=== PATIENT | female | born 1960 | race Caucasian/White ===

== ENCOUNTER → 2021-06-11 13:57 | Outpatient (BNVA) | payer OTHER, MEDICAID, MEDICARE, SELFPAY | PROVIDERS: PCP Internal Medicine; Visit Provider Nurse Practitioner Family | DX: G43.109 Migraine with aura, not intractable, without status migrainosus (principal); R41.3 Other amnesia; M54.50 Low back pain, unspecified | CPT/HCPCS: 99212 ==

== ENCOUNTER → 2021-07-12 12:53 | Outpatient (BNVA) | payer OTHER, MEDICAID, MEDICARE, SELFPAY | PROVIDERS: PCP Internal Medicine; Visit Provider Psychiatry & Neurology Neurology | DX: G43.109 Migraine with aura, not intractable, without status migrainosus (principal); G25.2 Other specified forms of tremor | CPT/HCPCS: 64615; 99212; J0585 ==

== ENCOUNTER 2021-08-27 12:44 | Outpatient (REF) | payer OTHER, SELFPAY ==
--- NOTE | ~2021-08-27 | MR_ITS ---
EXAMINATION: MR BRAIN WITHOUT CONTRAST. CLINICAL INFORMATION: 60-year-old with tremor, amnesia. COMPARISON: None TECHNIQUE: Multiplanar multisequence MR imaging of the brain was done without IV contrast. 1.5 Eboni scanner. FINDINGS: Brain Volume: Mild generalized diffuse nonspecific brain parenchymal volume loss. Structural: No malformations. Brain and Meninges: DWI sequence demonstrates no restricted diffusion to suggest acute or subacute cerebral ischemia. Gradient refocused imaging demonstrates no evidence for hemorrhage, hemosiderin staining or abnormal mineral deposition. Small, scattered foci of FLAIR/T2 signal hyperintensity are seen within the subcortical white matter of both cerebral hemispheres which are nonspecific findings but could be secondary to chronic ischemic microangiopathy. Remainder of the brain is normal in morphology and signal intensity. No extra-axial fluid collections, space-occupying process or mass effect are identified. Ventricles and Subarachnoid Spaces: The ventricular system and subarachnoid spaces are within normal limits without hydrocephalus. Orbital Structures: The visualized orbital structures are grossly unremarkable within the limitations of the study. Vascular: Signal voids are noted in the visualized major intracranial vessels. Osseous Structures, Sinuses/Mastoids, Extracranial Soft Tissues: Unremarkable MR/MR head/brain wo con IMPRESSION: 1. Scattered small nonspecific subcortical white matter T2 hyperintensities in both cerebral hemispheres which could be secondary to chronic ischemic microangiopathy. 2. No acute intracranial process.
== END 2021-08-27 12:45 | disposition home or self-care (01) ==
LOC: HO.MRI 12:44
PROVIDERS: Visit Provider Psychiatry & Neurology Neurology
DX: G25.2 Other specified forms of tremor (principal); R41.3 Other amnesia
CPT/HCPCS: 70551

== ENCOUNTER → 2021-10-19 09:29 | Outpatient (BNVA) | payer OTHER, MEDICAID, SELFPAY | PROVIDERS: PCP Internal Medicine; Visit Provider Psychiatry & Neurology Neurology | DX: G43.119 Migraine with aura, intractable, without status migrainosus (principal); G25.2 Other specified forms of tremor; R41.3 Other amnesia; G47.10 Hypersomnia, unspecified; R06.83 Snoring | CPT/HCPCS: 64615; 99211; J0585 ==

== ENCOUNTER → 2021-11-07 09:20 | Outpatient (BNVA) | payer OTHER, MEDICAID, SELFPAY | PROVIDERS: PCP Internal Medicine; Visit Provider Nurse Practitioner Family | DX: M54.42 Lumbago with sciatica, left side (principal); G31.84 Mild cognitive impairment of uncertain or unknown etiology | CPT/HCPCS: 99212 ==

== ENCOUNTER → 2021-12-04 15:08 | Outpatient (REF) | payer OTHER, SELFPAY | LOC: HO.SL 15:08 | PROVIDERS: PCP Internal Medicine; Visit Provider Psychiatry & Neurology Neurology | DX: G47.33 Obstructive sleep apnea (adult) (pediatric) (principal); G47.10 Hypersomnia, unspecified; R06.83 Snoring | CPT/HCPCS: 95806 ==

== ENCOUNTER → 2022-02-07 13:12 | Outpatient (BNVA) | payer OTHER, SELFPAY | PROVIDERS: PCP Internal Medicine; Visit Provider Psychiatry & Neurology Neurology | DX: G43.119 Migraine with aura, intractable, without status migrainosus (principal) | CPT/HCPCS: 64615; 99211; J0585 ==

== ENCOUNTER → 2022-03-15 13:07 | Outpatient (BNVA) | payer OTHER, MEDICAID, SELFPAY | PROVIDERS: PCP Internal Medicine; Visit Provider Nurse Practitioner Family | DX: G25.2 Other specified forms of tremor (principal); M54.50 Low back pain, unspecified; M54.32 Sciatica, left side; G47.33 Obstructive sleep apnea (adult) (pediatric); G47.34 Idiopathic sleep related nonobstructive alveolar hypoventilation | CPT/HCPCS: 99212 ==

== ENCOUNTER → 2022-03-18 22:33 | Outpatient (REF) | payer OTHER, MEDICAID, SELFPAY | LOC: HO.SL 22:33 | PROVIDERS: PCP Internal Medicine; Visit Provider Nurse Practitioner Family | DX: G47.33 Obstructive sleep apnea (adult) (pediatric) (principal) | CPT/HCPCS: 95811 ==

== ENCOUNTER → 2022-06-25 15:08 | Outpatient (BNVA) | payer OTHER, MEDICAID, SELFPAY | PROVIDERS: PCP Internal Medicine; Visit Provider Nurse Practitioner Family | DX: G43.119 Migraine with aura, intractable, without status migrainosus (principal); G31.84 Mild cognitive impairment of uncertain or unknown etiology; G47.33 Obstructive sleep apnea (adult) (pediatric); G25.2 Other specified forms of tremor | CPT/HCPCS: 99212 ==

== ENCOUNTER → 2022-09-04 10:34 | Outpatient (BNVA) | payer OTHER, MEDICAID, SELFPAY | PROVIDERS: PCP Internal Medicine; Visit Provider Psychiatry & Neurology Neurology | DX: G43.709 Chronic migraine without aura, not intractable, without status migrainosus (principal); F17.210 Nicotine dependence, cigarettes, uncomplicated | CPT/HCPCS: 64615; 99211; J0585 ==

== ENCOUNTER 2022-09-25 09:38 | Outpatient (AMB) | payer OTHER, MEDICAID, SELFPAY ==
--- NOTE | 2022-09-25 09:39 | A.OFFVIS_ITS ---
Intake Vital Signs 09/25/22 09:40 Height 5 ft 2 in Weight 171 lb 8 oz BMI 31.4 BP 108/80 Blood Pressure Location Rt brachial Position Sitting Pulse 90 Pulse Source Pulse Oximeter Pulse Oximetry (%) 97 Oxygen Delivery Method Room Air Intake Visit Reasons: 3 mo follow up-[place] Hypoxemia Intake Note: Pt presents as a 3 month f/u. Pt states shes still having dizziness when she bends over she gets really dizzy. still having back issues and she thinks it's gotten a little but better. pt states she would like juancarlos to take a look at this spot on her neck. Cpap is going well. Wares Sorter Required: No Allergies codeine Allergy (Verified 09/25/22 09:46) Stomach Upset ropinirole [From Requip] Allergy (Verified 09/25/22 09:46) Muscle Pain acetaminophen [From Vicodin] Adverse Reaction (Mild, Verified 09/25/22 09:46) Stomach Upset hydrocodone [From Vicodin] Adverse Reaction (Mild, Verified 09/25/22 09:46) Stomach Upset Medication List - Last Reconciled 09/25/22 by NICOLAS Abarca blood sugar diagnostic (FreeStyle Precision [place] Strips) As directed budesonide-formoterol 160-4.5 mcg/actuation (Symbicort) 2 puffs inhalation BID bupropion HCl 150 mg PO DAILY clonazepam 0.5 mg PO PRN cyclobenzaprine 5 - 10 mg (1 - 2 x 5 mg) PO BID PRN 30 days famotidine 20 mg PO BID flash glucose scanning reader (FreeStyle Dharmesh 2 [place]) As directed flash glucose sensor (FreeStyle Dharmesh 2 Sensor kit) As directed gabapentin 300mg am, 300mg 12pm, 600mg bedtime. insulin aspart U-100 (Novolog FlexPen U-100 Insulin aspart) subcut insulin detemir U-100 (Levemir FlexTouch U-100 Insulin) units subcut lidocaine 5% 1 patch topical DAILY loperamide 2 mg PO Q6H PRN miconazole nitrate 2% 1 appful vaginal BEDTIME omeprazole 40 mg PO DAILY onabotulinumtoxinA (Botox) inject 155 units IM across forehead. scalp, and neck; 12 weeks pen needle, diabetic (BD Ultra-Fine Original Pen Needle) As directed sertraline 100 mg PO BID simvastatin 40 mg PO BEDTIME tramadol 50 mg PO Q8H PRN 7 days trazodone 200 mg PO BEDTIME ubrogepant (Ubrelvy) 1/2 -1 tab PO,; May repeat in 2 hours. Max 200 mg/day HPI HPI Comments History of Present Illness Details 61-yr-old female presents for f/u visit. She notes hse has had a spot on her right neck- smalll lump, used to be able toe express white fluid from it, but now it does not express any fluid, has become hard and a bit sore to the touch. She has not seen derm. Pt reports she continues to have throbbing left knee pain s/p knee procedure 3 months ago. Low back pain is a bit better- has an appt w/ pain management in [facility]. Cyclobenzaprine is helpful. Using Tramadol prn. Botox continues to be effective- she has had a slight increase in breakthrough migraines- not sure if this is triggered by the weather changes, using the AC more, and her CPAP mask. Typically does not have many breakthrough headaches, until the last 2 weeks before he next injection is due. In the last month, she had had about 12 headache days. Can still be dizzy if she bends over. Tremor is a bit better. She is using CPAP regulary, usually sleeps better with use. Her CPAP compliance report shows 87% overall use and residual AHI 1.8/hr.. PFSH Medical History Chronic migraine without aura Surgical History H/O cervical spine surgery H/O: hysterectomy History of appendectomy History of cataract surgery S/P knee surgery Family History Father Heart disease Cancer Family/Other Heart disease Mother Alzheimer disease Bipolar 1 disorder Scoliosis Social History Household Members: Spouse Alcohol intake: never Patient Tobacco Use Status: Current everyday Tobacco user Cigarettes Per Day: 5 Review of Systems Const All systems reviewed & are unremarkable except as noted in HPI and below Physical Exam Vital Signs: Last Vital Signs Pulse 90 09/25/22 09:40 BP 108/80 09/25/22 09:40 Pulse Ox 97 09/25/22 09:40 Oxygen Delivery Method Room Air 09/25/22 09:40 BMI result Body Mass Index 31.4 Const General: cooperative and no acute distress Orientation/consciousness: patient oriented x3 HEENT Head: Yes normocephalic Resp Effort & Inspection: normal respiratory effort and able to speak in complete sentences Neuro Other: BUE mild postural tremor General: patient oriented x3 and CN's II-XI intact bilaterally Cognition (Neuro): normal cognition Gait exam (Neuro): Antalgic gait present and Assistive device used (cane) Motor exam (neuro): 5/5 motor strength present throughout Psych Appearance: grossly normal Mental Status: mental status grossly normal Speech and movement: Clear speech present Affect: normal affect Attitude: cooperative Thought process: Normal thought process present Assessment & Plan Assessment & Plan (1) Chronic migraine without aura: Code(s): G43.709 - Chronic migraine without aura, not intractable, without status migrainosus (2) Migraine with aura, not intractable, without status migrainosus: Code(s): G43.109 - Migraine with aura, not intractable, without status migrainosus (3) Coarse tremors: Code(s): G25.2 - Other specified forms of tremor (4) Obstructive sleep apnea: Code(s): G47.33 - Obstructive sleep apnea (adult) (pediatric) Plan For right neck skin lesion- small firm lump w/o erythema, exudate- pt advised to have derm consult- she would benefit from routine skin exams. Info given on local clinics. For MCI and CHIRAG: Continue CPAP 9 cmH2O cmH2O nightly > 4 hrs (with goal of > 6hrs), as pt is already experiencing good clinical effect. ? For low back pain- Tramadol prn- use sparingly. Continue the cyclobenzaprine 5-10mg bid prn. Continue lidocaine patches. Pain management consult as scheduled. Also ortho f/u for left knee pain/swelling. ? For chronic migraine- Continue Botox, Gabapentin, and prn Ubrelvy Migraine tx contraindications: triptans d/t a-fib dx. ? Monitor Tremor clinically- improved. ? f/u in 4 months or sooner prn. Medications: Refilled ubrogepant (Ubrelvy) 1/2 -1 tab PO,; May repeat in 2 hours. Max 200 mg/day 8 tabs 6RF cyclobenzaprine 5 - 10 mg (1 - 2 x 5 mg) PO BID PRN 120 tabs 1RF muscle spasm 30 days Coding Level of Care Code Est Pt Level 4 (44917) Diagnoses Chronic migraine without aura G43.709 Migraine with aura, not intractable, without status migrainosus G43.109 Coarse tremors G25.2 Obstructive sleep apnea G47.33
[2022-09-25 09:40] VITALS: BP 108/80; PULSE 90; O2SAT 97; BMI 31.4
== END 2022-09-25 10:27 | disposition home or self-care (01) ==
PROVIDERS: Visit Provider Nurse Practitioner Family
DX: G43.709 Chronic migraine without aura, not intractable, without status migrainosus (principal); G43.109 Migraine with aura, not intractable, without status migrainosus; G25.2 Other specified forms of tremor; G47.33 Obstructive sleep apnea (adult) (pediatric)
CPT/HCPCS: 99214

== ENCOUNTER → 2022-09-25 09:38 | Outpatient (BNVA) | payer OTHER, MEDICAID, SELFPAY | PROVIDERS: Visit Provider Nurse Practitioner Family | DX: G43.709 Chronic migraine without aura, not intractable, without status migrainosus (principal); G43.109 Migraine with aura, not intractable, without status migrainosus; G25.2 Other specified forms of tremor; G47.33 Obstructive sleep apnea (adult) (pediatric) | CPT/HCPCS: 99212 ==

== ENCOUNTER 2023-01-29 08:54 | Outpatient (AMB) | payer OTHER, MEDICAID, SELFPAY ==
--- NOTE | 2023-01-29 08:42 | A.OFFVIS_ITS ---
Intake Intake Visit Reasons: 4m follow up [place] Hypoxemia Intake Note: Pt presents to the office as a telehealth today for a 4 month follow up [place] Hypoxemia. Pt states she is having a hard time using the CPAP at night. She states she puts it on and takes it off multiple times a night. Pt states it is hard right now as well due to her pain in her leg after her surgery so she is up a lot at night due to that. Pt states she doesn't really think the CPAP is working for her. Allergies codeine Allergy (Verified 01/29/23 08:42) Stomach Upset ropinirole [From Requip] Allergy (Verified 01/29/23 08:42) Muscle Pain acetaminophen [From Vicodin] Adverse Reaction (Mild, Verified 01/29/23 08:42) Stomach Upset hydrocodone [From Vicodin] Adverse Reaction (Mild, Verified 01/29/23 08:42) Stomach Upset Medication List - Last Reconciled 01/29/23 by NICOLAS Abarca blood sugar diagnostic (FreeStyle Precision [place] Strips) As directed budesonide-formoterol 160-4.5 mcg/actuation (Symbicort) 2 puffs inhalation BID clonazepam 0.5 mg PO PRN cyclobenzaprine 5 - 10 mg (1 - 2 x 5 mg) PO BID PRN 30 days famotidine 20 mg PO BID flash glucose scanning reader (OctonotcoStyle Dharmesh 2 [place]) As directed flash glucose sensor (FreeStyle Dharmesh 2 Sensor kit) As directed gabapentin 300mg am, 300mg 12pm, 600mg bedtime. insulin aspart U-100 (Novolog FlexPen U-100 Insulin aspart) subcut insulin detemir U-100 (Levemir FlexTouch U-100 Insulin) units subcut lidocaine 5% 1 patch topical DAILY loperamide 2 mg PO Q6H PRN miconazole nitrate 2% 1 appful vaginal BEDTIME omeprazole 40 mg PO DAILY onabotulinumtoxinA (Botox) inject 155 units IM across forehead. scalp, and neck; 12 weeks pen needle, diabetic (BD Ultra-Fine Original Pen Needle) As directed sertraline 100 mg PO BID simvastatin 40 mg PO BEDTIME tramadol 50 mg PO Q8H PRN 7 days trazodone 200 mg PO BEDTIME ubrogepant (Ubrelvy) 1/2 -1 tab PO,; May repeat in 2 hours. Max 200 mg/day HPI HPI Comments History of Present Illness Details 62-yr-old female presents for f/u televi unruly visit, via [employer]. Pt endorses the following interval medical history changes: She underwent a left TKR on 11/12/22- by Dr Mckeon. Pt reports that she initially was doing very well, was walking better, working w/ PT. Then out of the blue, this past weekend, she woke up with left knee swelling and painful- fluid was drained but this has not helped. Per pt, fluid C&S- negative. She states that she was suing her CPAP faithfully, but since she had the left TKR, she has not been able to use it as much. Finding that she is waking up at night to void, and then it is a hassle to get the mask back on and the mask leaks. She states that the CPAP has become more of a hassle than a benefit. Her pulmonoloist is Dr Browning- she notes she has not been on her maintenance inhalers since prior to the PAP titration study. She reports she is doing well on her current migraine regimen. She reports 4 typical migraine days per month, which is responsive to Ubrelvy 50-100mg prn. Using the cyclobenzaprine just as needed. She did miss her last Botox appts- d/t the above knee issue. Rescheduled for end of Mar. Tremor is stable- hands shake a little, a bit more if stressed or blood sugar is low. [facility] Medical History Chronic migraine without aura Surgical History S/P knee surgery History of cataract surgery H/O cervical spine surgery H/O: hysterectomy History of appendectomy Family History Father Heart disease Cancer Family/Other Heart disease Mother Alzheimer disease Bipolar 1 disorder Scoliosis Household Members: Spouse Alcohol intake: never Patient Tobacco Use Status: Current everyday Tobacco user Cigarettes Per Day: 5 Physical Exam Const General: cooperative and no acute distress Orientation/consciousness: patient oriented x3 HEENT Head: Yes normocephalic Resp Effort & Inspection: normal respiratory effort and able to speak in complete sentences Neuro General: patient oriented x3 Cognition (Neuro): normal cognition Psych Appearance: grossly normal Mental Status: mental status grossly normal Affect: normal affect Attitude: cooperative Assessment & Plan Assessment & Plan (1) Chronic migraine without aura: Code(s): G43.709 - Chronic migraine without aura, not intractable, without status migrainosus (2) Nocturnal hypoxemia: Code(s): G47.34 - Idiopathic sleep related nonobstructive alveolar hypoventilation (3) Obstructive sleep apnea: Code(s): G47.33 - Obstructive sleep apnea (adult) (pediatric) (4) MCI (mild cognitive impairment): Comment: 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 However, will request pt to f/u w/ Dr Browning- ? optimizing pulmonary d/o's would reduce nocturnal hypoxemia. ? For low back pain- Tramadol prn- use sparingly- at this point pt is using Tramadol for her knee pain- thus will defer to Dr Mckeon on this. Continue the cyclobenzaprine 5-10mg bid prn. Continue lidocaine patches. ? For chronic migraine- Continue Botox, Gabapentin, and prn Ubrelvy Migraine tx contraindications: triptans d/t a-fib dx. ? Monitor Tremor clinically- improved. ? f/u in 6 months or sooner prn. Orders: Referrals Pulmonology Referral G47.33 - Obstructive sleep apnea (adult) (pediatric), G47.34 - Idiopathic sleep related nonobstructive alveolar hypoventilation, I48.0 - Paroxysmal atrial fibrillation Telehealth Telehealth Location of provider rendering services: practice address Location of patient: address on file Patient Identification confirmed using: Name, : Yes Telehealth method: video Patient verbally consented to treatment: Yes Patient verbally consented to billing insurance company: Yes Patient informed of any privacy concerns related to visit: Yes Minutes spent on Phone/Video with Pt.: 27 Coding Level of Care Code Tele Est Pt Level 4 (98355) Diagnoses Chronic migraine without aura G43.709 Nocturnal hypoxemia G47.34 Obstructive sleep apnea G47.33 MCI (mild cognitive impairment) G31.84
== END 2023-01-29 10:35 | disposition home or self-care (01) ==
LOC: HO.HSMS 08:54
PROVIDERS: PCP Internal Medicine; Visit Provider Nurse Practitioner Family
DX: G43.709 Chronic migraine without aura, not intractable, without status migrainosus (principal); G47.34 Idiopathic sleep related nonobstructive alveolar hypoventilation; G47.33 Obstructive sleep apnea (adult) (pediatric); G31.84 Mild cognitive impairment of uncertain or unknown etiology
CPT/HCPCS: 99214

== ENCOUNTER → 2023-01-29 08:54 | Outpatient (BNVA) | payer OTHER, MEDICAID, SELFPAY | PROVIDERS: PCP Internal Medicine; Visit Provider Nurse Practitioner Family ==

== ENCOUNTER 2023-05-22 13:13 | Outpatient (AMB) | payer OTHER, MEDICAID, SELFPAY ==
--- NOTE | 2023-05-22 13:14 | A.OFFVIS_ITS ---
Intake Vital Signs 05/22/23 13:15 Height 5 ft 2 in Weight 169 lb 8 oz BMI 31.0 BP 138/90 H Blood Pressure Location Rt brachial Position Sitting Respiration 16 Pulse 90 Pulse Source Pulse Oximeter Pulse Oximetry (%) 96 Oxygen Delivery Method Room Air Intake Visit Reasons: BOTOX-CONF Intake Note: Pt presents to the office for Botox injections. Regulatory Scientist Required: No Allergies codeine Allergy (Verified 05/22/23 13:14) Stomach Upset ropinirole [From Requip] Allergy (Verified 05/22/23 13:14) Muscle Pain acetaminophen [From Vicodin] Adverse Reaction (Mild, Verified 05/22/23 13:14) Stomach Upset hydrocodone [From Vicodin] Adverse Reaction (Mild, Verified 05/22/23 13:14) Stomach Upset Medication List - Last Reconciled 05/22/23 by Priscilla Antunez MD blood sugar diagnostic (FreeStyle Precision [place] Strips) As directed budesonide-formoterol 160-4.5 mcg/actuation (Symbicort) 2 puffs inhalation BID clonazepam 0.5 mg PO PRN cyclobenzaprine 5 - 10 mg (1 - 2 x 5 mg) PO BID PRN 30 days famotidine 20 mg PO BID flash glucose scanning reader (FreeStyle Dharmesh 2 [place]) As directed flash glucose sensor (FreeStyle Dharmesh 2 Sensor kit) As directed gabapentin 300mg am, 300mg 12pm, 600mg bedtime. insulin aspart U-100 (Novolog FlexPen U-100 Insulin aspart) subcut insulin detemir U-100 (Levemir FlexTouch U-100 Insulin) units subcut lidocaine 5% 1 patch topical DAILY loperamide 2 mg PO Q6H PRN miconazole nitrate 2% 1 appful vaginal BEDTIME omeprazole 40 mg PO DAILY onabotulinumtoxinA (Botox) inject 155 units IM across forehead. scalp, and neck; 12 weeks pen needle, diabetic (BD Ultra-Fine Original Pen Needle) As directed sertraline 100 mg PO BID simvastatin 40 mg PO BEDTIME trazodone 200 mg PO BEDTIME ubrogepant (Ubrelvy) 1/2 -1 tab PO,; May repeat in 2 hours. Max 200 mg/day HPI HPI Comments History of Present Illness Details 61y/o female comes for botox for migrain e. Her last injection was 9 months ago and she has been doing well she reports 1migraine /month and usually responds to ubrelvy. The migraines last few hrs. In the interim she had left knee replacement and a lumbar miscrodisectomy. her cognition is better Mood is stable [facility] Medical History (Updated 05/22/23 @ 13:31 by Priscilla Antunez MD) Migraine Chronic migraine without aura Surgical History Hx of discectomy S/P knee surgery History of cataract surgery H/O cervical spine surgery H/O: hysterectomy History of appendectomy Family History Father Heart disease Cancer Family/Other Heart disease Mother Alzheimer disease Bipolar 1 disorder Scoliosis Social History Household Members: Spouse Alcohol intake: never Patient Tobacco Use Status: Current everyday Tobacco user Cigarettes Per Day: 5 Physical Exam Vital Signs: Last Vital Signs Pulse 90 05/22/23 13:15 Resp 16 05/22/23 13:15 BP 138/90 H 05/22/23 13:15 Pulse Ox 96 05/22/23 13:15 Oxygen Delivery Method Room Air 05/22/23 13:15 BMI result Body Mass Index 31.0 Const General: cooperative, healthy appearing, comfortable and no acute distress Nutritional Appearance: average body habitus Orientation/consciousness: patient oriented x3 Eyes Pupils: Equal, round and reactive pupils present Neuro General: patient oriented x3, tone normal, moves all extremities and no focal motor deficits Cranial nerves: Yes Equal, round and reactive pupils present, Yes Bilaterally intact EOM present, Yes Nystagmus not present and Yes Normal facial strength present Cognition (Neuro): normal cognition Gait exam (Neuro): Antalgic gait present Assessment & Plan Assessment & Plan (1) Migraine: Comment: stable 1 migraine day /month Code(s): G43.909 - Migraine, unspecified, not intractable, without status migrainosus (2) Obstructive sleep apnea: Comment: on CPAP Code(s): G47.33 - Obstructive sleep apnea (adult) (pediatric) Plan Will hold off on BOTOX Patient is doing well on ubrelvy with migraine frequency of 0-1 /month F/u Pulmonary for CH[facility]AG Her cognition is stable now Coding Level of Care Code Est Pt Level 4 (86478) Diagnoses Migraine G43.909 Obstructive sleep apnea G47.33
[2023-05-22 13:15] VITALS: BP 138/90; PULSE 90; RESP 16; O2SAT 96; BMI 31.0
== END 2023-05-22 13:34 | disposition home or self-care (01) ==
LOC: HO.HSMS 13:13
PROVIDERS: PCP Internal Medicine; Visit Provider Psychiatry & Neurology Neurology
DX: G43.909 Migraine, unspecified, not intractable, without status migrainosus (principal); G47.33 Obstructive sleep apnea (adult) (pediatric)
CPT/HCPCS: 99214

== ENCOUNTER → 2023-05-22 13:13 | Outpatient (BNVA) | payer OTHER, MEDICAID, SELFPAY | PROVIDERS: PCP Internal Medicine; Visit Provider Psychiatry & Neurology Neurology | DX: G43.909 Migraine, unspecified, not intractable, without status migrainosus (principal); G47.33 Obstructive sleep apnea (adult) (pediatric); Z79.899 Other long term (current) drug therapy | CPT/HCPCS: 99212 ==

== ENCOUNTER 2023-08-21 14:31 | Outpatient (AMB) | payer OTHER, SELFPAY ==
--- NOTE | 2023-08-21 14:46 | A.OFFVIS_ITS ---
Vital Signs 08/21/23 14:48 Height 5 ft 2 in Weight 167 lb 7 oz BMI 30.6 BP 112/70 Blood Pressure Location Rt brachial Position Sitting Respiration 16 Pulse 80 Pulse Source Pulse Oximeter Pulse Oximetry (%) 98 Oxygen Delivery Method Room Air Intake Visit Reasons: BOTOX - Confirmed Intake Note: Pt presents to the office for Botox injections. Director Of Event Sales Required: No Allergies codeine Allergy (Verified 08/21/23 14:46) Stomach Upset ropinirole [From Requip] Allergy (Verified 08/21/23 14:46) Muscle Pain acetaminophen [From Vicodin] Adverse Reaction (Mild, Verified 08/21/23 14:46) Stomach Upset hydrocodone [From Vicodin] Adverse Reaction (Mild, Verified 08/21/23 14:46) Stomach Upset Medication List - Last Reconciled 08/21/23 by Priscilla Antunez MD blood sugar diagnostic (FreeStyle Precision [place] Strips) As directed budesonide-formoterol 160-4.5 mcg/actuation (Symbicort) 2 puffs inhalation BID clonazepam 0.5 mg PO PRN cyclobenzaprine 5 - 10 mg (1 - 2 x 5 mg) PO BID PRN 30 days famotidine 20 mg PO BID flash glucose scanning reader (IT MOVES ITStyle Dharmesh 2 [place]) As directed flash glucose sensor (FreeStyle Dharmesh 2 Sensor kit) As directed gabapentin 300mg am, 300mg 12pm, 600mg bedtime. insulin aspart U-100 (Novolog FlexPen U-100 Insulin aspart) subcut insulin detemir U-100 (Levemir FlexTouch U-100 Insulin) units subcut lidocaine 5% 1 patch topical DAILY loperamide 2 mg PO Q6H PRN miconazole nitrate 2% 1 appful vaginal BEDTIME omeprazole 40 mg PO DAILY onabotulinumtoxinA (Botox) inject 155 units IM across forehead. scalp, and neck; 12 weeks pen needle, diabetic (BD Ultra-Fine Original Pen Needle) As directed sertraline 100 mg PO BID simvastatin 40 mg PO BEDTIME trazodone 200 mg PO BEDTIME ubrogepant (Ubrelvy) 1/2 -1 tab PO,; May repeat in 2 hours. Max 200 mg/day HPI Comments Details: 62y/o female comes for botox for migraines ??? Most frequent reported adverse reactions following injection of botox for chronic migraine include neck pain (9%), headache(5%), eyelid ptosis(4%), migraine(4%), muscular weakness(4%), musculuskeletal stiffness(4%), bronchitis(3%), injection site pain (3%), musculoskeletal pain(3%), myalgia(3%), facial paresis(2%), HTN(2%) and muscle spasms(2%) were discussed in detail. ??? Botulinum toxin typeA 200units Lot no C [id number] expiration August 2025 was diluted with 4 cc of normal saline . ??? Muscles injected- ??? Frontalis 4 sites ??? Procerus 1 site ??? Cap Cutter- 2 sites ??? Temporalis- 8 sites ??? Occipitalis- 6 sites ??? Cervical paraspinals- 4 sites ? 5 units each in 25 site ??? Deng trapezius - 30units each ??? Total use- 185units ??? Discarded-15units she also c/o increased tremor sin her right upper extremity Neuropsych eval is c/w mild cognitive impairment PFSH Medical History Migraine Chronic migraine without aura Surgical History Hx of discectomy S/P knee surgery History of cataract surgery H/O cervical spine surgery H/O: hysterectomy History of appendectomy Family History Father Heart disease Cancer Family/Other Heart disease Mother Alzheimer disease Bipolar 1 disorder Scoliosis Social History Household Members: Spouse Alcohol intake: never Patient Tobacco Use Status: Current everyday Tobacco user Cigarettes Per Day: 5 Physical Exam Vital Signs: Last Vital Signs Pulse 80 08/21/23 14:48 Resp 16 08/21/23 14:48 BP 112/70 08/21/23 14:48 Pulse Ox 98 08/21/23 14:48 Oxygen Delivery Method Room Air 08/21/23 14:48 BMI result Body Mass Index 30.6 Const General: cooperative, healthy appearing, comfortable and no acute distress Nutritional Appearance: average body habitus Orientation/consciousness: patient oriented x3 Eyes Pupils: Equal, round and reactive pupils present Neuro General: patient oriented x3, tone normal, moves all extremities and no focal motor deficits Cranial nerves: Yes Equal, round and reactive pupils present, Yes Bilaterally intact EOM present, Yes Nystagmus not present and Yes Normal facial strength present Cognition (Neuro): normal cognition Gait exam (Neuro): Antalgic gait present Office Procedures Botulinum toxin Injection 56221 - Migraine Procedure code (CPT) selection complete Office Meds onabotulinumtoxinA 200 unit solution for injection Performing Provider: Priscilla Antunez MD Performing Location: [facility] Administered by: Priscilla Antunez MD on 08/21/23 15:08 Dose Route Admin Location Dispensed Lot Number Expiration Date [facility] [employer] 185 unit subcut 200 units [id number] 08/08/25 6577-1007-76 ALLERGAN/BOTOX Comments: see HPI Assessment & Plan Assessment & Plan (1) Migraine with aura, intractable, without status migrainosus: Code(s): G43.119 - Migraine with aura, intractable, without status migrainosus Category: Medical (2) Chronic migraine without aura: Code(s): G43.709 - Chronic migraine without aura, not intractable, without status migrainosus Category: Medical Plan Patient tolerated the procedure well she will call with any side effects Orders: Orders AMB Botulinum toxin Injection Today G43.709 - Chronic migraine without aura, not intractable, without status migrainosus Medications: New onabotulinumtoxinA 200 units subcut ONCE 1 ea 0RF migraine headache G43.709 - Chronic migraine without aura, not intractable, without status migrainosus Coding Level of Care Code Est Pt Level 1 (35247) Diagnoses Migraine with aura, intractable, without status migrainosus G43.119 Chronic migraine without aura G43.709 CPT Codes Botox Injection - Botox 3: 60467 - Migraine ([id number])
[2023-08-21 14:48] VITALS: BP 112/70; PULSE 80; RESP 16; O2SAT 98; BMI 30.6
== END 2023-08-21 15:07 | disposition home or self-care (01) ==
PROVIDERS: PCP Internal Medicine; Visit Provider Psychiatry & Neurology Neurology
DX: G43.E09 Chronic migraine with aura, not intractable, without status migrainosus (principal)
CPT/HCPCS: 64615

== ENCOUNTER → 2023-08-21 14:31 | Outpatient (BNVA) | payer OTHER, SELFPAY | PROVIDERS: PCP Internal Medicine; Visit Provider Psychiatry & Neurology Neurology | DX: G43.E09 Chronic migraine with aura, not intractable, without status migrainosus (principal) | CPT/HCPCS: 64615; 99211; J0585 ==

== ENCOUNTER 2023-11-14 11:00 | Outpatient (AMB) | payer OTHER, SELFPAY ==
--- NOTE | 2023-11-14 11:06 | MHC.OFFVIS ---
Vital Signs 11/14/23 11:07 Height 5 ft 2 in Weight 167 lb BMI 30.5 BP 114/72 Blood Pressure Location Rt brachial Position Sitting Pulse 89 Pulse Source Pulse Oximeter Pulse Oximetry (%) 98 Oxygen Delivery Method Room Air Intake Visit Reasons: Follow up Intake Note: Patient presents for follow up. neuropathy getting worst on her legs. Allergies codeine Allergy (Verified 11/14/23 11:11) Stomach Upset ropinirole [From Requip] Allergy (Verified 11/14/23 11:11) Muscle Pain acetaminophen [From Vicodin] Adverse Reaction (Mild, Verified 11/14/23 11:11) Stomach Upset hydrocodone [From Vicodin] Adverse Reaction (Mild, Verified 11/14/23 11:11) Stomach Upset Medication List - Last Reconciled 11/14/23 by NICOLAS Abarca blood sugar diagnostic (DATAllegroStyle Precision Garrett Strips) As directed budesonide-formoterol 160-4.5 mcg/actuation (Symbicort) 2 puffs inhalation BID clonazepam 0.5 mg PO PRN cyclobenzaprine 5 - 10 mg (1 - 2 x 5 mg) PO BID PRN 30 days famotidine 20 mg PO BID flash glucose scanning reader (DATAllegroStyle Dharmesh 2 [place]) As directed flash glucose sensor (FreeStyle Dharmesh 2 Sensor kit) As directed gabapentin 300mg am, 300mg 12pm, 600mg bedtime. insulin aspart U-100 (Novolog FlexPen U-100 Insulin aspart) subcut insulin detemir U-100 (Levemir FlexTouch U-100 Insulin) units subcut lidocaine 5% 1 patch topical DAILY loperamide 2 mg PO Q6H PRN miconazole nitrate 2% 1 appful vaginal BEDTIME omeprazole 40 mg PO DAILY onabotulinumtoxinA (Botox) inject 155 units IM across forehead. scalp, and neck; 12 weeks pen needle, diabetic (BD Ultra-Fine Original Pen Needle) As directed sertraline 100 mg PO BID simvastatin 40 mg PO BEDTIME trazodone 200 mg PO BEDTIME ubrogepant (Ubrelvy) 1/2 -1 tab PO,; May repeat in 2 hours. Max 200 mg/day HPI Comments Details: 63-yr-old female presents for f/u visit. Pt denies any significant interval medical changes. Pt reports she has continued to do well sicne undergoing cervical microdiscectomy,?right L45 in April. Occasionally may have left knee pain. She is no longer needing to use a cane. She is using cyclobenzaprine prn low back muscle spasms. She does note she is having some increased in her BLE neuropathy s/s- feeling burning sensation in the bottom of her feet. She has not had her Gabapentin refiled in some time, so has not been taking it TID. Denies BLE numbness. She is having an uptick in her migraines. Now more so over the right eye/right frontal/temporal a/w photophobia, nausea, activity intolerance. Usually in the am or after a more active day. Ubrelvy can help this headache as well. She has been having ~3 headache days per week. She thought it was d/t needing new glasses, but she did get new glasses, and this did not help. Tremor is stable. Memory is stable. Prone to repeating herself. May forget what she was talking about. She is able to recall things after some time. She has been doing more puzzles. Pt has stopped CPAP 9 cmH2O, as she was not sleeping well with it. She did discuss this w/ Dr Browning pulmonary. Her recent pFTs showed improvement. She has reduced smoking. [facility] Medical History (Updated 11/14/23 @ 12:26 by NICOLAS Abarca) Migraine Chronic migraine without aura Surgical History Hx of discectomy S/P knee surgery History of cataract surgery H/O cervical spine surgery H/O: hysterectomy History of appendectomy Family History Father Heart disease Cancer Family/Other Heart disease Mother Alzheimer disease Bipolar 1 disorder Scoliosis Social History Household Members: Spouse Alcohol intake: never Patient Tobacco Use Status: Current everyday Tobacco user Cigarettes Per Day: 5 Physical Exam Vital Signs: Last Vital Signs Pulse 89 11/14/23 11:07 BP 114/72 11/14/23 11:07 Pulse Ox 98 11/14/23 11:07 Oxygen Delivery Method Room Air 11/14/23 11:07 BMI result Body Mass Index 30.5 Const General: cooperative and no acute distress Orientation/consciousness: patient oriented x3 Resp Effort & Inspection: normal respiratory effort and able to speak in complete sentences Neuro Other: No [id number] tremor today. General: patient oriented x3 Cranial nerves: Yes CN's II-XII intact bilaterally Cognition (Neuro): normal cognition Gait exam (Neuro): Normal gait present Psych Appearance: grossly normal Mental Status: mental status grossly normal Speech and movement: Normal speech and movement present Affect: normal affect Attitude: cooperative Assessment & Plan Assessment & Plan (1) Migraine: Code(s): G43.909 - Migraine, unspecified, not intractable, without status migrainosus Category: Medical (2) Low back pain, unspecified: Code(s): M54.50 - Low back pain, unspecified Category: Medical (3) Paresthesia of both feet: Code(s): R20.2 - Paresthesia of skin Category: Medical Plan For MCI and CHIRAG: Stable. Stopped CPAP- did not tolerate. Monitor clinically. ? For low back pain- Continue the cyclobenzaprine 5-10mg bid prn. Continue lidocaine patches. ? For migraine- Resume Gabapentin 300mg BID and 600mg QHS- may help w/ BLE paresthesias. If Headache burden increases to > 15 headaches per month, then resume Botox- pt has appt already for 01/12. Continue Botox, Gabapentin, and prn Ubrelvy Migraine tx contraindications: triptans d/t a-fib dx. ? Monitor Tremor clinically- improved. ? f/u in 6 months or sooner prn. Medications: Changed From gabapentin 300mg am, 300mg 12pm, 600mg bedtime. To gabapentin 300mg bid and 600mg qhs orally; 30 days 120 caps 6RF Coding Level of Care Code Est Pt Level 4 (37460) Diagnoses Migraine G43.909 Low back pain, unspecified M54.50 Paresthesia of both feet R20.2
[2023-11-14 11:07] VITALS: BP 114/72; PULSE 89; O2SAT 98; BMI 30.5
== END 2023-11-14 12:10 | disposition home or self-care (01) ==
PROVIDERS: PCP Internal Medicine; Visit Provider Nurse Practitioner Family
DX: G43.909 Migraine, unspecified, not intractable, without status migrainosus (principal); M54.50 Low back pain, unspecified; R20.2 Paresthesia of skin
CPT/HCPCS: 99214

== ENCOUNTER → 2023-11-14 11:00 | Outpatient (BNVA) | payer OTHER, SELFPAY | PROVIDERS: PCP Internal Medicine; Visit Provider Nurse Practitioner Family | DX: G43.909 Migraine, unspecified, not intractable, without status migrainosus (principal); R20.2 Paresthesia of skin; M54.50 Low back pain, unspecified | CPT/HCPCS: 99212 ==

== ENCOUNTER 2023-11-17 17:04 | Inpatient (IN) | payer OTHER, SELFPAY ==
--- NOTE | 2023-11-17 17:30 | ED_ITS ---
HPI - Psych General Chief Complaint: Psychiatric Symptoms Stated Complaint: SI Time Seen by Provider: 11/17/23 17:27 Source: patient Mode of arrival: ambulatory Limitations: no limitations History of Present Illness HPI Narrative: Patient is a 63-year-old female who presents to the emergency department for evaluation of suicidal ideations with a plan to overdose on her prescription medications. She states ?I can not take it any more I do not want to live?. ?These little things have exploded in my mind?. She has a psychiatrist and therapist through [facility], she met with her therapist today and was advised that she should come to the emergency department. She admits to a history of suicide attempt approximately 10 years ago with overdose on Klonopin. She expresses a lot of anxiety and depression reporting that she feels like a failure as a grandmother and a mother, and I am not but I can not help feeling that way . She endorses financial hardships, and is extremely upset that she is unable to financially assist her granddaughter in fixing her motor vehicle so that she may continue to go to college. She further expresses frustration in a different granddaughter who is on grateful for what she offers. She denies any physical complaints. Denies recreational drug or alcohol usage. Related Data Home Medications ?Medication ?Instructions ?Recorded ?Confirmed budesonide-formoterol HFA 160 2 puff inhalation BID 06/11/21 11/17/23 mcg-4.5 mcg/actuation aerosol inhaler (Symbicort) clonazepam 0.5 mg tablet 0.5 mg PO TID PRN Anxiety 06/11/21 11/17/23 insulin aspart U-100 100 unit/mL 0 sliding scale dose subcut TIDWM 06/11/21 11/17/23 (3 mL) subcutaneous pen (Novolog FlexPen U-100 Insulin aspart) omeprazole 40 mg capsule,delayed 40 mg PO DAILY 06/11/21 11/17/23 release blood sugar diagnostic (FreeStyle #10 ea 02/07/22 11/14/23 Precision Garrett Strips) flash glucose scanning reader #1 ea 02/07/22 11/14/23 (FreeStyle Dharmesh 2 [place]) flash glucose sensor (FreeStyle #1 ea 02/07/22 11/14/23 Dharmesh 2 Sensor kit) insulin detemir U-100 100 unit/mL 8 - 10 unit subcut BEDTIME 02/07/22 11/17/23 (3 mL) subcutaneous pen (Levemir FlexTouch U-100 Insulin) pen needle, diabetic 29 gauge x #100 ea 02/07/22 11/14/23 1/2 (BD Ultra-Fine Original Pen Needle) simvastatin 40 mg tablet 40 mg PO BEDTIME 02/07/22 11/17/23 sertraline 100 mg tablet 100 mg PO BID 03/15/22 11/17/23 trazodone 100 mg tablet 200 mg PO BEDTIME 06/25/22 11/17/23 miconazole nitrate 2 % vaginal 1 appful vaginal BEDTIME 09/04/22 11/17/23 cream gabapentin 300 mg capsule 300 mg PO TID 11/17/23 11/17/23 umeclidinium 62.5 mcg/actuation 1 inh inhalation DAILY 11/17/23 11/17/23 blister powder for inhalation (Incruse Ellipta) Previous Rx's ?Medication ?Instructions ?Recorded ubrogepant 100 mg tablet (Ubrelvy) See Rx Instructions .Route 10/09/22 .COMPLEX #8 tabs Allergies Allergy/AdvReac Type Severity Reaction Status Date / Time codeine Allergy Stomach Verified 11/17/23 18:37 Upset ropinirole [From Requip] Allergy Muscle Pain Verified 11/17/23 18:37 acetaminophen [From Vicodin] AdvReac Mild Stomach Verified 11/17/23 18:37 Upset hydrocodone [From Vicodin] AdvReac Mild Stomach Verified 11/17/23 18:37 Upset Review of Systems 2 Review of Systems: Yes all other systems are reviewed and are negative PMFSH Past Medical History Attestation statement: The following information was validated with the patient. Source: old records reviewed Medical History Migraine Chronic migraine without aura Surgical History Hx of discectomy S/P knee surgery History of cataract surgery H/O cervical spine surgery H/O: hysterectomy History of appendectomy Family History Family History Father Heart disease Cancer Family/Other Heart disease Mother Alzheimer disease Bipolar 1 disorder Scoliosis Social History Social History Household Members: Spouse Alcohol intake: never Patient Tobacco Use Status: Current everyday Tobacco user Cigarettes Per Day: 5 Smoked in Last 30 Days: Yes Use of substances other than those prescribed or required for medical reasons: No Advance Directives: No Advance Directives Information Provided: No Do you have a plan to hurt others: No Plan Physical Exam 2 Vital Signs: Vital Signs: Last Vital Signs Temp 97.9 F 11/17/23 18:39 Pulse 72 11/17/23 18:39 Resp 14 11/17/23 18:39 BP 118/50 L 11/17/23 18:39 Pulse Ox 93 11/17/23 18:39 O2 Del Method Room Air 11/17/23 18:39 BMI result Body Mass Index 26.6 Appearance: Alert.?Oriented to person, place and time. No acute distress.?Normal affect. Neck: Normal inspection.? Neck supple.?? CVS: Heart sounds normal. Normal heart rate and rhythm.? Pulses normal.?? Respiratory: No respiratory distress.? Lung sounds clear to auscultation bilaterally?? Abdomen: Soft and non-tender. Normoactive bowel sounds. Skin: Skin warm and dry.? Normal skin color.? ? Extremities: No lower extremity edema.? ? Neuro: Moves all extremities spontaneously. Sensation intact bilaterally. CN II- XII intact. No focal neuro deficits. Ambulates with normal steady gait. Medications Administered Generic Name Dose Route Start Last Admin Trade Name Ginoq PRN Reason Stop Dose Admin Gabapentin 300 mg 11/17/23 21:00 11/17/23 22:18 Gabapentin 300 Mg Capsule PO 300 mg TID UMU Administration Insulin Glargine 5 unit 11/17/23 22:30 11/17/23 23:01 Insulin Glargine,Hum.Rec.Anlog 100 Unit/Ml 10 Ml Vial SUBCUT Not Given BEDTIME [facility] Insulin Human Lispro 0 unit 11/17/23 22:45 11/17/23 22:58 Insulin Lispro 100 Unit/Ml 3 Ml Vial SUBCUT Not Given TIDWM [facility] Protocol Sertraline HCl 100 mg 11/17/23 21:00 11/17/23 22:19 Sertraline Hcl 100 Mg Tablet PO 100 mg BID UMU Administration Trazodone HCl 200 mg 11/17/23 21:00 11/17/23 22:19 Trazodone Hcl 100 Mg Tablet PO 200 mg BEDTIME UMU Administration Medical Decision Making Medical Decision Making [facility] Narrative: Patient is a 63-year-old female past medical history of paroxysmal atrial fibrillation, CHIRAG, DM, GERD, migraine, anxiety, depression who presents emergency department suicidal ideation and a plan as per HPI. She is tearful at the time of my evaluation, calm and cooperative with staff. She offers no physical complaints and her physical examination is benign. Plan to obtain labs for medical clearance and refer to care team for further evaluation/safe disposition. Differential Diagnosis Differential Diagnoses: The differential diagnosis associated with the presentation includes (See narrative above and below) Admission/Observation Consideration of admission/observation: Escalation of care including admission/observation considered Patient is being observed in the Emergency Department for depression and anxiety. Observation time was started at 18:10 on 11/17/2023.?The patient is currently stable and non-toxic appearing. Observation is being initiated in the Emergency Department to allow time to help differentiate if the patient's depression and anxiety is due to Substance Induced Mood Disorder and Anxiety versus Major Depressive Disorder, Bipolar Ileana, Bipolar Depression, and Schizophrenia. The patient will receive frequent psychiatric assessments from the provider as well as from nursing staff. The patient will also be monitored for the need of PRN agitation medications such as Haldol, Ativan, and Benadryl. Consult Healthcare Provider Management of the patient was discussed with: Behavioral Health Provider Lab Data [facility] Lab Attestation statement: I reviewed the patient's lab results. CBC is without leukocytosis anemia, mild thrombocytopenia. No electrolyte derangement. No SHREYA. Non-anion gap hyperglycemia; random glucose 197. LFTs within normal range. Urinalysis with glucosuria no sign of infection. OLIVEIRA negative. Ethyl alcohol level nondetectable 11/17/23 18:10 11/17/23 18:10 Labs: Lab Results 11/17/23 11/17/23 11/17/23 Range/Units 18:01 18:10 18:33 WBC 8.9 (4.8-10.8) X10*3/uL RBC 4.60 (4.20-5.50) X10*6/uL Hgb 13.8 (12.0-16.0) g/dl Hct 39.2 (37.0-47.0) % MCV 85.2 (80.0-98.0) fL MCH 30.0 (27.0-33.0) pg MCHC 35.2 H (31.0-35.0) g/dl RDW 13.2 (11.0-16.0) % Plt Count 129 L (160-400) X10*3/uL MPV 11.2 (9.4-12.3) fL Immature Gran % (Auto) 0.2 (0.0-0.4) % Neut % (Auto) 55.4 (45-73) % Lymph % (Auto) 33.1 (20-40) % [place] % (Auto) 7.9 (2-11) % Eos % (Auto) 3.1 (0-4) % Baso % (Auto) 0.3 (0-2) % Lymph # (Auto) 3.0 (1.2-4.9) X10*3/uL [place] # (Auto) 0.7 (0.1-1.2) X10*3/uL Eos # (Auto) 0.3 (0.0-0.4) X10*3/uL Baso # (Auto) 0.0 (0.0-0.2) X10*3/uL Abs Immat Gran (auto) 0.02 (0.00-0.03) X10*3/uL Absolute Neuts (auto) 4.9 (2.0-8.3) x10*3/uL Absolute Nucleated RBC 0.000 (0.0-0.012) X10*3/uL Nucleated RBC % (auto) 0.0 (0.0-0.2) /100WBC Sodium 142 (135-145) mmol/L Potassium 3.9 (3.3-5.1) mmol/L Chloride 107 (96-108) mmol/L Carbon Dioxide 26 (22-29) mmol/L Anion Gap 13 (12-20) BUN 11 (9-16) mg/dL Creatinine 0.74 (0.5-1.4) mg/dL Estim Creat Clear Calc 70.1 Estimated GFR > 60 POC Glucose 158 H (60-115) mg/dL Random Glucose 197 H (60-115) mg/dL Calcium 9.3 (8.4-10.2) mg/dL Total Bilirubin 0.3 (0.0-1.0) mg/dL AST 11 (5-31) U/L ALT 12 (0-31) U/L Alkaline Phosphatase 43 (39-117) U/L Total Protein 7.0 (6.5-8.0) g/dL Albumin 4.0 (3.5-5.0) g/dL Urine Color Yellow Urine Appearance Clear Urine pH 5.5 (5.0-9.0) Ur Specific [place] 1.020 (1.005-1.025) Urine Protein Negative (Neg-Trace) mg/dL Urine Glucose (UA) 500 H (Negative) mg/dL Urine Ketones Negative (Negative) mg/dL Urine Blood Negative (Negative) Urine Nitrite Negative (Negative) Ur Leukocyte Esterase Negative (Negative) Urine Opiates Screen Not Detected (Not Detect) Ur Buprenorphine Scrn Not Detected (Not Detect) ng/mL Ur Oxycodone Screen Not Detected (Not Detect) ng/mL Urine Methadone Screen Not Detected (Not Detect) ng/mL Urine Fentanyl Screen Not Detected (Not Detect) Ur Barbiturates Screen Not Detected (Not Detect) Ur Phencyclidine Scrn Not Detected (Not Detect) Ur Amphetamines Screen Not Detected (Not Detect) U Benzodiazepines Scrn Not Detected (Not Detect) Urine Cocaine Screen Not Detected (Not Detect) U Marijuana (THC) Screen Not Detected (Not Detect) Ethyl Alcohol < 10 mg/dL External Record Review External record reviewed: Outpatient record Discharge Plan Discharge Clinical Impression: Suicidal ideation Patient Disposition: Still a Patient Prescriptions: No Action Ubrelvy 100 mg tablet See Rx Instructions .ROUTE .COMPLEX Qty: 8 6RF Rx Instructions: 1/2 -1 tab PO,; May repeat in 2 hours. Max 200 mg/day gabapentin 300 mg capsule 300 mg PO TID Incruse Ellipta 62.5 mcg/actuation blister with device 1 inh inhalation DAILY omeprazole 40 mg capsule,delayed release(DR/EC) 40 mg PO DAILY insulin aspart U-100 [Novolog FlexPen U-100 Insulin] 100 unit/mL (3 mL) insulin pen 0 sliding scale dose subcut TIDWM clonazepam 0.5 mg tablet 0.5 mg PO TID PRN (Reason: Anxiety) budesonide-formoterol [Symbicort] 160-4.5 mcg/actuation HFA aerosol inhaler 2 puff inhalation BID sertraline 100 mg tablet 100 mg PO BID trazodone 100 mg tablet 200 mg PO BEDTIME (DME) pen needle, diabetic [BD Ultra-Fine Orig Pen Needle] 29 gauge x 1/2 needle See Rx Instructions .ROUTE .MEDSUPPLY Qty: 100 Rx Instructions: As directed (DME) FreeStyle Dharmesh 2 Sensor Kit See Rx Instructions .ROUTE .MEDSUPPLY Qty: 1 Rx Instructions: As directed Levemir FlexTouch U100 Insulin 100 unit/mL (3 mL) insulin pen 8 - 10 unit subcut BEDTIME (DME) FreeStyle Precision Garrett Strips Strip See Rx Instructions .ROUTE .MEDSUPPLY Qty: 10 Rx Instructions: As directed simvastatin 40 mg tablet 40 mg PO BEDTIME (DME) FreeStyle Dharmesh 2 [place] Misc See Rx Instructions .ROUTE .MEDSUPPLY Qty: 1 Rx Instructions: As directed miconazole nitrate 2 % cream 1 appful vaginal BEDTIME Interventions: Simpson-Suicide Risk Severity Scale Last Done: 11/17/23 18:37 Print Language: Bulgarian
[2023-11-17 18:16] LABS: MANUAL DIFF FLAG NO
[2023-11-17 18:24] LABS: Basophils Percent Auto 0.3 % (0-2); Eosinophils Absolute Auto 0.3 X10*3/uL (0.0-0.4); Eosinophils Percent Auto 3.1 % (0-4); Hematocrit 39.2 % (37.0-47.0); Hemoglobin 13.8 g/dl (12.0-16.0); Imm Gran Abs Auto 0.02 X10*3/uL (0.00-0.03); Imm Gran Pct Auto 0.2 % (0.0-0.4); Lymphocytes Percent Auto 33.1 % (20-40); Mean Corpuscular HGB Conc 35.2 g/dl (31.0-35.0); Mean Corpuscular Volume 85.2 fL (80.0-98.0); Mean Platelet Volume 11.2 fL (9.4-12.3); Monocytes Absolute Auto 0.7 X10*3/uL (0.1-1.2); Monocytes Percent Auto 7.9 % (2-11); Neutrophils Absolute Auto 4.9 x10*3/uL (2.0-8.3); Neutrophils Percent Auto 55.4 % (45-73); Platelet Count 129 X10*3/uL (160-400); Red Cell Distribution Width 13.2 % (11.0-16.0); White Blood Count 8.9 X10*3/uL (4.8-10.8)
[2023-11-17 18:29] LABS: Amphetamine Screen Urine Not Detected (Not Detect); Barbiturates, Urine Not Detected (Not Detect); Benzodiazepines Screen Urine Not Detected (Not Detect); Buprenorphine Scr Not Detected (Not Detect); Cannabinoid Screen Urine Not Detected (Not Detect); Cocaine Screen Urine Not Detected (Not Detect); Fentanyl, urine Not Detected (Not Detect); Methadone Screen, Urine Not Detected (Not Detect); Opiate Screen Urine Not Detected (Not Detect); Oxycodone Screen Urine Not Detected (Not Detect); Phencyclidine Screen Urine Not Detected (Not Detect)
[2023-11-17 18:34] VITALS: BP 118/50; PULSE 72; RESP 14; TEMP 36.6; O2SAT 93; BMI 26.6
[2023-11-17 18:35] LABS: Appearance Urine Clear; Color Urine Yellow; Glucose Urine UA 500 mg/dL (Negative); Leukocyte Esterase Urine Negative (Negative); Nitrite Urine Negative (Negative); PH 5.5 (5.0-9.0); Urine Blood Negative (Negative); Urine Ketones Negative (Negative); Urine Protein Negative (Neg-Trace)
[2023-11-17 18:39] VITALS: BP 118/50; PULSE 72; RESP 14; TEMP 36.6; O2SAT 93
[2023-11-17 18:39] LABS: Alanine Aminotransferase 12 U/L (0-31); Alkaline Phosphatase 43 U/L (39-117); Anion Gap 13 (12-20); Aspartate Amino Transferase 11 U/L (5-31); Bilirubin Total 0.3 mg/dL (0.0-1.0); Blood Urea Nitrogen 11 mg/dL (9-16); Calcium 9.3 mg/dL (8.4-10.2); Carbon Dioxide 26 mmol/L (22-29); Chloride 107 mmol/L (96-108); Creatinine Clr Calc Pharmacy 70.1; Estimated Glomerular Filt Rate > 60; Ethanol < 10 mg/dL; Glucose Random 197 mg/dL (60-115); Potassium 3.9 mmol/L (3.3-5.1); Sodium 142 mmol/L (135-145)
[2023-11-17 18:39] LABS: Glucose, Whole Blood 158 mg/dL (60-115)
--- NOTE | 2023-11-17 20:06 | PC.NURSE ---
patient meeting with care team staff presently appears to be calm at present, respirations are even and unlabored patient appears in no distress.
[2023-11-17] MEDS: Gabapentin 300 MG CAPSULE PO (22:18)
[2023-11-17] MEDS: traZODone HCL 100 MG TABLET 200 MG PO (22:19)
[2023-11-17] MEDS: Sertraline HCL 100 MG TABLET PO (22:19)
--- NOTE | 2023-11-17 22:40 | PHA.MEDREC ---
Pharmacy Consult ? Medication Reconciliation Pharmacy has reviewed the medication reconciliation. According to patient's hand written med list, she takes gabapentin tid and sertraline bid. She said she takes novolog tidwm per sliding scale.
--- NOTE | 2023-11-18 | ECG_ITS ---
Test Reason : check for prolonged QT Blood Pressure : / mmHG Vent. Rate : 079 BPM Atrial Rate : 079 BPM P-R Int : 134 ms QRS Dur : 080 ms QT Int : 412 ms P-R-T Axes : 037 064 071 degrees QTc Int : 472 ms Normal sinus rhythm Nonspecific T wave abnormality Prolonged QT Abnormal ECG No previous ECGs available Referred By: Generic ED Physician Electronically Signed By:SARAN SANCHEZ
--- NOTE | 2023-11-18 | ECG_ITS ---
Test Reason : CHECK FOR PROLONGED QT Blood Pressure : / mmHG Vent. Rate : 075 BPM Atrial Rate : 075 BPM P-R Int : 140 ms QRS Dur : 078 ms QT Int : 416 ms P-R-T Axes : 034 065 063 degrees QTc Int : 464 ms Normal sinus rhythm Normal ECG When compared with ECG of 18-NOV-2023 10:00, No significant change was found Referred By: Generic ED Physician Electronically Signed By:SARAN SANCHEZ
[2023-11-18 07:02] LABS: Glucose, Whole Blood 159 mg/dL (60-115)
[2023-11-18] MEDS: Omeprazole 40 MG CAPSULE.DR PO (08:18)
[2023-11-18] MEDS: Insulin Lispro 100 UNIT/ML 3 ML VIAL SUBCUT ×2 (08:18→17:55)
[2023-11-18] MEDS: Atorvastatin Calcium 20 MG TABLET PO (08:19)
[2023-11-18] MEDS: Sertraline HCL 100 MG TABLET PO (08:19)
[2023-11-18] MEDS: Gabapentin 300 MG CAPSULE PO ×3 (08:19→21:24)
[2023-11-18 12:44] LABS: Glucose, Whole Blood 131 mg/dL (60-115)
[2023-11-18] MEDS: Ibuprofen 400 MG TABLET PO (15:35)
[2023-11-18 17:52] LABS: Glucose, Whole Blood 182 mg/dL (60-115)
[2023-11-18 20:30] LABS: Glucose, Whole Blood 173 mg/dL (60-115)
[2023-11-18] MEDS: Insulin Glargine,Hum.rec.anlog 100 UNIT/ML 10 ML VIAL SUBCUT (21:24)
[2023-11-18] MEDS: traZODone HCL 100 MG TABLET 200 MG PO (21:24)
[2023-11-18 21:48] VITALS: BMI 28.2
[2023-11-18 21:49] VITALS: BP 100/52; PULSE 72; RESP 16; TEMP 36.6; O2SAT 93
--- NOTE | 2023-11-18 23:12 | PC.NURSE ---
Admission Note Rigo Del Cid, a 63-year-old female with psychiatric history of depression, suicidality, and PTSD, was presented to [facility] on her therapist recommendation for increased hopelessness and suicidal risk.? Sara arrived on [facility] unit at 2145 on 11/17/2023, on CV, with an admitting diagnosis of unspecified. Patient requested for three days' notice/offered/signed/filed. Patient has a past medical history of COPD, Mitral valve prolapse, chronic migraine, IDDM, and IBS. The patient is Alert & Oriented x 4; behavior calm, quiet, and pleasant; thought content clear; thought process coherent and linear; and could contract for safety. Denied SI/HI/AVH/depression/anxiety at this time.? Mood pleasant and affects is congruent to mood. She ambulates independently but has history fall which puts her on high fall risk, patient is medication and meals compliant, takes her meds whole, independent of ADL care, no skin issues observed/reported, VSS. Lab results are unremarkable. POC at 2026@2026. Med rec completed in Ed/approved by admitting psych provider/[facility] active. Patient is fully compliant with the admission process, unit orientation, and safety tool and treatment plan. Legal status education and copy of Notice of Rights for Conditional Voluntary Hospitalization provided. Patient is placed on a 5 minute check by the provider/maintained as ordered.?
--- NOTE | 2023-11-18 23:19 | PC.NURSE ---
Addendum entered by Luis Goel RN 11/18/23 23:34: Rigo arrived on [facility] unit at 2145 on 11/18/2023, on CV, and POC in 2026 was 173 in ED Original Note: Admission Note Rigo Del Cid, a 63-year-old female with psychiatric history of depression, suicidality, and PTSD, was presented to [facility] on her therapist recommendation for increased hopelessness and suicidal risk.? Rigo arrived on [place] [address] unit at 2145 on 11/17/2023, on CV, with an admitting diagnosis of unspecified. Patient requested for three days' notice/offered/signed/filed. Patient has a past medical history of COPD, Mitral valve prolapse, chronic migraine, IDDM, and IBS. The patient is Alert & Oriented x 4; behavior calm, quiet, and pleasant; thought content clear; thought process coherent and linear; and could contract for safety. Denied SI/HI/AVH/depression/anxiety at this time.? Mood pleasant and affects is congruent to mood. She ambulates independently but has history fall which puts her on high fall risk, patient is medication and meals compliant, takes her meds whole, independent of ADL care, no skin issues observed/reported, VSS,? Lab results are unremarkable. POC at 2026@2026. Med rec completed in Ed/approved by admitting psych provider/IWONA active. Patient is fully compliant with the admission process, unit orientation, and safety tool and treatment plan. Legal status education and copy of Notice of Rights for Conditional Voluntary Hospitalization provided. Patient is placed on a 5 minute check by the provider/maintained as ordered.?
[2023-11-19] MEDS: Omeprazole 40 MG CAPSULE.DR PO (05:48)
[2023-11-19 06:34] LABS: Glucose, Whole Blood 162 mg/dL (60-115)
[2023-11-19] MEDS: Atorvastatin Calcium 20 MG TABLET PO (07:58)
[2023-11-19] MEDS: Gabapentin 300 MG CAPSULE PO ×3 (07:58→20:29)
[2023-11-19] MEDS: Sertraline HCL 100 MG TABLET PO (07:58)
[2023-11-19 08:00] VITALS: BP 107/55; PULSE 58; RESP 18; TEMP 36.6; O2SAT 86
[2023-11-19] MEDS: Insulin Lispro 100 UNIT/ML 3 ML VIAL SUBCUT ×3 (08:09→19:05)
--- NOTE | 2023-11-19 08:40 | HO.PSYADMNOT ---
HPI Chief Complaint: SI [facility] Medical History Migraine Chronic migraine without aura Surgical History Hx of discectomy S/P knee surgery History of cataract surgery H/O cervical spine surgery H/O: hysterectomy History of appendectomy Diagnostics Vital Signs (24Hr): Vital Signs - 24 hr 11/18/23 21:49 11/19/23 08:00 Temperature 98 F 97.9 F Pulse Rate 72 58 Respiratory Rate 16 18 Blood Pressure 100/52 L 107/55 L Pulse Oximetry 93 86 L Oxygen Delivery Method Room Air Room Air BMI result Body Mass Index 28.2 Labs 11/17/23 18:10 11/17/23 18:10 Labs: Laboratory Results - last 48 hr 11/17/23 11/17/23 11/17/23 18:01 18:10 18:33 WBC 8.9 RBC 4.60 Hgb 13.8 Hct 39.2 MCV 85.2 MCH 30.0 MCHC 35.2 H RDW 13.2 Plt Count 129 L MPV 11.2 Immature Gran % (Auto) 0.2 Neut % (Auto) 55.4 Lymph % (Auto) 33.1 [place] % (Auto) 7.9 Eos % (Auto) 3.1 Baso % (Auto) 0.3 Lymph # (Auto) 3.0 [place] # (Auto) 0.7 Eos # (Auto) 0.3 Baso # (Auto) 0.0 Abs Immat Gran (auto) 0.02 Absolute Neuts (auto) 4.9 Absolute Nucleated RBC 0.000 Nucleated RBC % (auto) 0.0 Sodium 142 Potassium 3.9 Chloride 107 Carbon Dioxide 26 Anion Gap 13 BUN 11 Creatinine 0.74 Estim Creat Clear Calc 70.1 Estimated GFR > 60 POC Glucose 158 H Random Glucose 197 H Calcium 9.3 Total Bilirubin 0.3 AST 11 ALT 12 Alkaline Phosphatase 43 Total Protein 7.0 Albumin 4.0 Urine Color Yellow Urine Appearance Clear Urine pH 5.5 Ur Specific [place] 1.020 Urine Protein Negative Urine Glucose (UA) 500 H Urine Ketones Negative Urine Blood Negative Urine Nitrite Negative Ur Leukocyte Esterase Negative Urine Opiates Screen Not Detected Ur Buprenorphine Scrn Not Detected Ur Oxycodone Screen Not Detected Urine Methadone Screen Not Detected Urine Fentanyl Screen Not Detected Ur Barbiturates Screen Not Detected Ur Phencyclidine Scrn Not Detected Ur Amphetamines Screen Not Detected U Benzodiazepines Scrn Not Detected Urine Cocaine Screen Not Detected U Marijuana (THC) Screen Not Detected Ethyl Alcohol < 10 11/18/23 11/18/23 11/18/23 06:59 12:40 17:48 WBC RBC Hgb Hct MCV MCH MCHC RDW Plt Count MPV Immature Gran % (Auto) Neut % (Auto) Lymph % (Auto) [place] % (Auto) Eos % (Auto) Baso % (Auto) Lymph # (Auto) [place] # (Auto) Eos # (Auto) Baso # (Auto) Abs Immat Gran (auto) Absolute Neuts (auto) Absolute Nucleated RBC Nucleated RBC % (auto) Sodium Potassium Chloride Carbon Dioxide Anion Gap BUN Creatinine Estim Creat Clear Calc Estimated GFR POC Glucose 159 H 131 H 182 H Random Glucose Calcium Total Bilirubin AST ALT Alkaline Phosphatase Total Protein Albumin Urine Color Urine Appearance Urine pH Ur Specific [place] Urine Protein Urine Glucose (UA) Urine Ketones Urine Blood Urine Nitrite Ur Leukocyte Esterase Urine Opiates Screen Ur Buprenorphine Scrn Ur Oxycodone Screen Urine Methadone Screen Urine Fentanyl Screen Ur Barbiturates Screen Ur Phencyclidine Scrn Ur Amphetamines Screen U Benzodiazepines Scrn Urine Cocaine Screen U Marijuana (THC) Screen Ethyl Alcohol 11/18/23 11/19/23 20:27 06:29 WBC RBC Hgb Hct MCV MCH MCHC RDW Plt Count MPV Immature Gran % (Auto) Neut % (Auto) Lymph % (Auto) [place] % (Auto) Eos % (Auto) Baso % (Auto) Lymph # (Auto) [place] # (Auto) Eos # (Auto) Baso # (Auto) Abs Immat Gran (auto) Absolute Neuts (auto) Absolute Nucleated RBC Nucleated RBC % (auto) Sodium Potassium Chloride Carbon Dioxide Anion Gap BUN Creatinine Estim Creat Clear Calc Estimated GFR POC Glucose 173 H 162 H Random Glucose Calcium Total Bilirubin AST ALT Alkaline Phosphatase Total Protein Albumin Urine Color Urine Appearance Urine pH Ur Specific [place] Urine Protein Urine Glucose (UA) Urine Ketones Urine Blood Urine Nitrite Ur Leukocyte Esterase Urine Opiates Screen Ur Buprenorphine Scrn Ur Oxycodone Screen Urine Methadone Screen Urine Fentanyl Screen Ur Barbiturates Screen Ur Phencyclidine Scrn Ur Amphetamines Screen U Benzodiazepines Scrn Urine Cocaine Screen U Marijuana (THC) Screen Ethyl Alcohol Meds/Allergies Meds Home Medications ?Medication ?Instructions ?Recorded ?Confirmed ?Type budesonide-formoterol HFA 160 2 puff inhalation BID 06/11/21 11/17/23 History mcg-4.5 mcg/actuation aerosol inhaler (Symbicort) clonazepam 0.5 mg tablet 0.5 mg PO TID PRN Anxiety 06/11/21 11/17/23 History insulin aspart U-100 100 unit/mL 0 sliding scale dose subcut TIDWM 06/11/21 11/17/23 History (3 mL) subcutaneous pen (Novolog FlexPen U-100 Insulin aspart) omeprazole 40 mg capsule,delayed 40 mg PO DAILY 06/11/21 11/17/23 History release blood sugar diagnostic (FreeStyle #10 ea 02/07/22 11/18/23 History Precision Garrett Strips) flash glucose scanning reader #1 ea 02/07/22 11/18/23 History (FreeStyle Dharmesh 2 [place]) flash glucose sensor (FreeStyle #1 ea 02/07/22 11/18/23 History Dharmesh 2 Sensor kit) insulin detemir U-100 100 unit/mL 8 - 10 unit subcut BEDTIME 02/07/22 11/17/23 History (3 mL) subcutaneous pen (Levemir FlexTouch U-100 Insulin) pen needle, diabetic 29 gauge x #100 ea 02/07/22 11/18/23 History 1/2 (BD Ultra-Fine Original Pen Needle) simvastatin 40 mg tablet 40 mg PO BEDTIME 02/07/22 11/17/23 History sertraline 100 mg tablet 100 mg PO BID 03/15/22 11/17/23 History trazodone 100 mg tablet 200 mg PO BEDTIME 06/25/22 11/17/23 History miconazole nitrate 2 % vaginal 1 appful vaginal BEDTIME 09/04/22 11/17/23 History cream gabapentin 300 mg capsule 300 mg PO TID 11/17/23 11/17/23 History umeclidinium 62.5 mcg/actuation 1 inh inhalation DAILY 11/17/23 11/17/23 History blister powder for inhalation (Incruse Ellipta) Allergies Allergies Allergy/AdvReac Type Severity Reaction Status Date / Time codeine Allergy Stomach Verified 11/17/23 18:37 Upset ropinirole [From Requip] Allergy Muscle Pain Verified 11/17/23 18:37 acetaminophen [From Vicodin] AdvReac Mild Stomach Verified 11/17/23 18:37 Upset hydrocodone [From Vicodin] AdvReac Mild Stomach Verified 11/17/23 18:37 Upset Assessment & Plan Statement Statement: I have reviewed the history and physical and performed a pertinent examination on my patient. No changes have occurred unless specified. If the History and Physical was not performed prior to admission, the Hospitalist's service will be consulted for completing the admission physical. Time Spent With Patient Time: Total time managing care of this patient today ____ minutes.
[2023-11-19 09:21] LABS: Estimated Average Glucose 146 mg/dL; Hemoglobin A1c % 6.7 % (<6.0)
[2023-11-19 09:36] LABS: Alanine Aminotransferase 12 U/L (0-31); Albumin Level 3.9 g/dL (3.5-5.0); Alkaline Phosphatase 41 U/L (39-117); Anion Gap 11 (12-20); Aspartate Amino Transferase 11 U/L (5-31); Bilirubin Total 0.5 mg/dL (0.0-1.0); Blood Urea Nitrogen 18 mg/dL (9-16); Calcium 9.4 mg/dL (8.4-10.2); Carbon Dioxide 24 mmol/L (22-29); Chloride 107 mmol/L (96-108); Cholesterol 193 mg/dL (<200); Creatinine Clr Calc Pharmacy 59.1; Estimated Glomerular Filt Rate > 60; Glucose Fasting 180 mg/dL (60-99); HDL Cholesterol 55 mg/dL (>40); LDL Cholesterol Calculated 112 mg/dL (<100); Magnesium 1.9 mg/dL (1.6-2.6); Potassium 4.1 mmol/L (3.3-5.1); Sodium 138 mmol/L (135-145); Triglycerides 130 mg/dL (<150)
[2023-11-19 10:01] LABS: Folate 5.8 ng/mL (> or = 4.0); Vitamin B12 225 pg/mL (200-900)
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
[2023-11-19 12:08] LABS: Glucose, Whole Blood 156 mg/dL (60-115)
[2023-11-19] MEDS: Nicotine Polacrilex 2 MG GUM BUCCAL (13:04)
[2023-11-19 18:58] LABS: Glucose, Whole Blood 160 mg/dL (60-115)
[2023-11-19] MEDS: Fluticasone/Vilanterol 200/25 BLST.W.DEV 1 PUFF INHALE (18:58)
[2023-11-19 20:00] VITALS: BP 106/58; PULSE 73; RESP 18; TEMP 36.5; O2SAT 97
[2023-11-19 20:05] LABS: Glucose, Whole Blood 154 mg/dL (60-115)
[2023-11-19] MEDS: Insulin Glargine,Hum.rec.anlog 100 UNIT/ML 10 ML VIAL SUBCUT (20:28)
[2023-11-19] MEDS: traZODone HCL 100 MG TABLET 200 MG PO (20:29)
[2023-11-20] MEDS: Omeprazole 40 MG CAPSULE.DR PO (06:26)
[2023-11-20 06:58] LABS: Glucose, Whole Blood 168 mg/dL (60-115)
[2023-11-20 08:04] VITALS: BP 119/59; PULSE 90; RESP 16; TEMP 36.4; O2SAT 95
[2023-11-20] MEDS: Gabapentin 300 MG CAPSULE PO ×3 (08:11→20:17)
[2023-11-20] MEDS: Fluticasone/Vilanterol 200/25 BLST.W.DEV 1 PUFF INHALE (08:11)
[2023-11-20] MEDS: Atorvastatin Calcium 20 MG TABLET PO (08:11)
[2023-11-20] MEDS: Sertraline HCL 50 MG TABLET 150 MG PO (08:11)
[2023-11-20] MEDS: Insulin Lispro 100 UNIT/ML 3 ML VIAL SUBCUT ×2 (08:12→12:05)
--- NOTE | 2023-11-20 08:54 | P.PNPSI_ITS ---
Subjective Subjective Date of Service: 11/20/23 Reason For Visit: SI Subjective Notes: Conditional Voluntary Interim History: Pt slept most of the night. Pt denies SI/HI. She reports she feels much better in that she is not as overwhelmed as she was when she came in due to family dynamics related to her granddaughter. She is taking medications as prescribed. No behavioral concerns. Looking forward to be discharged tomorrow. Diagnostics Vital Signs (24Hr): Vital Signs - 24 hr 11/19/23 20:00 11/20/23 08:04 Temperature 97.7 F 97.6 F Pulse Rate 73 90 Respiratory Rate 18 16 Blood Pressure 106/58 L 119/59 L Pulse Oximetry 97 95 Oxygen Delivery Method Room Air Room Air BMI result Body Mass Index 28.2 Labs 11/17/23 18:10 11/19/23 08:25 Labs: Laboratory Results - last 48 hr 11/18/23 11/18/23 11/18/23 12:40 17:48 20:27 Sodium Potassium Chloride Carbon Dioxide Anion Gap BUN Creatinine Estim Creat Clear Calc Estimated GFR POC Glucose 131 H 182 H 173 H Fasting Glucose Estimat Average Glucose Hemoglobin A1c % Calcium Magnesium Total Bilirubin AST ALT Alkaline Phosphatase Total Protein Albumin Triglycerides Cholesterol LDL Cholesterol, Calc HDL Cholesterol Vitamin B12 Folate TSH 11/19/23 11/19/23 11/19/23 06:29 08:25 12:03 Sodium 138 Potassium 4.1 Chloride 107 Carbon Dioxide 24 Anion Gap 11 L BUN 18 H Creatinine 0.87 Estim Creat Clear Calc 59.1 Estimated GFR > 60 POC Glucose 162 H 156 H Fasting Glucose 180 H Estimat Average Glucose 146 Hemoglobin A1c % 6.7 H Calcium 9.4 Magnesium 1.9 Total Bilirubin 0.5 AST 11 ALT 12 Alkaline Phosphatase 41 Total Protein 7.0 Albumin 3.9 Triglycerides 130 Cholesterol 193 LDL Cholesterol, Calc 112 H HDL Cholesterol 55 Vitamin B12 225 Folate 5.8 TSH 2.00 11/19/23 11/19/23 11/20/23 18:52 19:57 06:53 Sodium Potassium Chloride Carbon Dioxide Anion Gap BUN Creatinine Estim Creat Clear Calc Estimated GFR POC Glucose 160 H 154 H 168 H Fasting Glucose Estimat Average Glucose Hemoglobin A1c % Calcium Magnesium Total Bilirubin AST ALT Alkaline Phosphatase Total Protein Albumin Triglycerides Cholesterol LDL Cholesterol, Calc HDL Cholesterol Vitamin B12 Folate TSH Medications Medications Current Medications Al Hydroxide/Mg Hydroxide (Magnesium Hydrox/Alum Hydrox 30 Ml Oral.Susp) 30 ml PO Q6H PRN PRN Reason: Heartburn/Nausea Atorvastatin Calcium (Atorvastatin Calcium 20 Mg Tablet) 20 mg PO DAILY [facility] Last Admin: 11/20/23 08:11 Dose: 20 mg Clonazepam (Clonazepam 0.5 Mg Tablet) 0.5 mg PO TID PRN PRN Reason: Anxiety Clotrimazole (Clotrimazole 1 % Vaginal Cream 45 Gm Tube) 1 appl VAGINAL BEDTIME [facility] Last Admin: 11/19/23 20:32 Dose: Not Given Fluticasone/Vilanterol (Fluticasone/Vilanterol 200/25 Blst.W.Dev) 1 puff INHALE RDAILY [facility] Last Admin: 11/20/23 08:11 Dose: 1 puff Gabapentin (Gabapentin 300 Mg Capsule) 300 mg PO TID [facility] Last Admin: 11/20/23 08:11 Dose: 300 mg Insulin Glargine (Insulin Glargine,Hum.Rec.Anlog 100 Unit/Ml 10 Ml Vial) 5 unit SUBCUT BEDTIME [facility] Last Admin: 11/19/23 20:28 Dose: 5 unit Insulin Human Lispro (Insulin Lispro 100 Unit/Ml 3 Ml Vial) 0 unit SUBCUT TIDWM [facility]; Protocol Last Admin: 11/20/23 08:12 Dose: 2 unit Magnesium Hydroxide (Milk Of Magnesia 30 Ml Oral.Susp) 30 ml PO DAILY PRN PRN Reason: Constipation Nicotine Polacrilex (Nicotine Polacrilex 2 Mg Gum) 2 mg BUCCAL Q2H PRN PRN Reason: Nicotine Cravings Last Admin: 11/19/23 13:04 Dose: 2 mg Omeprazole (Omeprazole 40 Mg Capsule.Dr) 40 mg PO DAILY@0630 [facility] Last Admin: 11/20/23 06:26 Dose: 40 mg Sertraline HCl (Sertraline Hcl 50 Mg Tablet) 150 mg PO DAILY [facility] Last Admin: 11/20/23 08:11 Dose: 150 mg Trazodone HCl (Trazodone Hcl 100 Mg Tablet) 200 mg PO BEDTIME [facility] Last Admin: 11/19/23 20:29 Dose: 200 mg Allergies Allergies Allergy/AdvReac Type Severity Reaction Status Date / Time codeine Allergy Stomach Verified 11/17/23 18:37 Upset ropinirole [From Requip] Allergy Muscle Pain Verified 11/17/23 18:37 acetaminophen [From Vicodin] AdvReac Mild Stomach Verified 11/17/23 18:37 Upset hydrocodone [From Vicodin] AdvReac Mild Stomach Verified 11/17/23 18:37 Upset Assessment & Plan Assessment & Plan (1) Major depressive disorder: Status: Acute Code(s): F32.9 - Major depressive disorder, single episode, unspecified (2) Chronic migraine without aura: Status: Acute Code(s): G43.709 - Chronic migraine without aura, not intractable, without status migrainosus (3) Paresthesia of both feet: Status: Acute Code(s): R20.2 - Paresthesia of skin (4) Migraine: Status: Acute Code(s): G43.909 - Migraine, unspecified, not intractable, without status migrainosus (5) Paroxysmal atrial fibrillation: Status: Acute Code(s): I48.0 - Paroxysmal atrial fibrillation (6) Obstructive sleep apnea: Status: Acute Code(s): G47.33 - Obstructive sleep apnea (adult) (pediatric) (7) MCI (mild cognitive impairment): Status: Acute Code(s): G31.84 - Mild cognitive impairment of uncertain or unknown etiology (8) Low back pain, unspecified: Status: Acute Code(s): M54.50 - Low back pain, unspecified Plan The patient is a middle-aged female with a past history of PTSD and trauma, with a long history of depression always followed as an outpatient who was admitted into the facility after she was referred by her therapist and her best friend to 6 services since her dysphoria was worsened after family conflicts in the last weeks. She had been able to contract for safety. Plan 1. continue tx. dc tomorrow. Reason for continued inpatient stay Substantial Risk for: inability to function Time Spent With Patient Time: Total time managing care of this patient today ____ minutes.
[2023-11-20 09:04] VITALS: BMI 30.6
[2023-11-20 11:46] LABS: Glucose, Whole Blood 185 mg/dL (60-115)
[2023-11-20 16:34] LABS: Glucose, Whole Blood 130 mg/dL (60-115)
[2023-11-20 20:00] VITALS: BP 127/64; PULSE 84; RESP 16; TEMP 36.8; O2SAT 93
[2023-11-20] MEDS: Insulin Glargine,Hum.rec.anlog 100 UNIT/ML 10 ML VIAL SUBCUT (20:13)
[2023-11-20] MEDS: Cyclobenzaprine HCl 5 MG TABLET PO (20:17)
[2023-11-20] MEDS: traZODone HCL 100 MG TABLET 200 MG PO (20:18)
[2023-11-21] MEDS: Omeprazole 40 MG CAPSULE.DR PO (06:03)
[2023-11-21 06:32] LABS: Glucose, Whole Blood 166 mg/dL (60-115)
[2023-11-21 08:00] VITALS: BP 116/59; PULSE 78; TEMP 36.8; O2SAT 95
[2023-11-21] MEDS: Insulin Lispro 100 UNIT/ML 3 ML VIAL SUBCUT (08:25)
[2023-11-21] MEDS: Cyclobenzaprine HCl 5 MG TABLET PO (08:26)
[2023-11-21] MEDS: Atorvastatin Calcium 20 MG TABLET PO (08:26)
[2023-11-21] MEDS: Gabapentin 300 MG CAPSULE PO (08:26)
[2023-11-21] MEDS: Sertraline HCL 50 MG TABLET 150 MG PO (08:26)
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
[2023-11-21] MEDS: Fluticasone/Vilanterol 200/25 BLST.W.DEV 1 PUFF INHALE (10:03)
--- NOTE | 2023-11-21 11:24 | PC.NURSE ---
Pt. A & O X 4. Denies anxiety, depression, SI, HI, and perceptual disturbances. Reports readiness to discharge, I have a good plan in place to not be overwhelmed by my family's problems. Looking forward to going to [facility]. Discharge instructions and medications reviewed with pt., who verbalized understanding. Pt. was accompanied by this RN and ambulated off unit to discharge lounge to be picked up by . Time off unit 11:12.
== END 2023-11-21 11:12 | disposition home or self-care (01) | DRG 881 ==
LOC: HO.ED 11-18 12:40 → HO.PGERI 11-18 16:55
PROVIDERS: Admitting Provider Social Worker; Emergency Provider Emergency Medicine; PCP Internal Medicine; Visit Provider Social Worker
DX: F32.9 Major depressive disorder, single episode, unspecified (principal); R45.851 Suicidal ideations; G43.709 Chronic migraine without aura, not intractable, without status migrainosus; G43.909 Migraine, unspecified, not intractable, without status migrainosus; I48.0 Paroxysmal atrial fibrillation; G47.33 Obstructive sleep apnea (adult) (pediatric); G31.84 Mild cognitive impairment of uncertain or unknown etiology; M54.50 Low back pain, unspecified; F43.10 Post-traumatic stress disorder, unspecified; Z91.51 Personal history of suicidal behavior; F17.210 Nicotine dependence, cigarettes, uncomplicated; Z71.6 Tobacco abuse counseling; Z79.4 Long term (current) use of insulin; Z79.899 Other long term (current) drug therapy
CPT/HCPCS: 36415; 80053; 80061; 80307; 81003; 82607; 82746; 82947; 83036; 83735; 84443; 85025; 93005; 99285; S9485

== ENCOUNTER → 2023-11-18 16:42 | Outpatient (BNV) | payer OTHER, SELFPAY | PROVIDERS: Admitting Provider Social Worker; Emergency Provider Emergency Medicine; PCP Internal Medicine; Visit Provider Psychiatry & Neurology Psychiatry | DX: F32.2 Major depressive disorder, single episode, severe without psychotic features (principal); G43.709 Chronic migraine without aura, not intractable, without status migrainosus; R20.2 Paresthesia of skin; G43.909 Migraine, unspecified, not intractable, without status migrainosus | CPT/HCPCS: 90792; 99231; 99239 ==

== ENCOUNTER 2024-01-13 07:55 | Outpatient (AMB) | payer OTHER, SELFPAY ==
--- NOTE | 2024-01-13 07:57 | MHC.OFFVIS ---
Vital Signs 01/13/24 07:57 Height 5 ft 2 in Intake Visit Reasons: BOTOX Intake Note: Patient presents for botox injection Allergies codeine Allergy (Verified 01/13/24 08:00) Stomach Upset ropinirole [From Requip] Allergy (Verified 01/13/24 08:00) Muscle Pain acetaminophen [From Vicodin] Adverse Reaction (Mild, Verified 01/13/24 08:00) Stomach Upset hydrocodone [From Vicodin] Adverse Reaction (Mild, Verified 01/13/24 08:00) Stomach Upset Medication List - Last Reconciled 01/13/24 by Priscilla Antunez MD blood sugar diagnostic (FreeStyle Precision Garrett Strips) As directed budesonide-formoterol 160-4.5 mcg/actuation (Symbicort) 2 puffs inhalation BID clonazepam 0.5 mg PO TID PRN flash glucose scanning reader (AppShareStyle Dharmesh 2 [place]) As directed flash glucose sensor (FreeStyle Dharmesh 2 Sensor kit) As directed gabapentin 300 mg PO TID insulin aspart U-100 (Novolog FlexPen U-100 Insulin aspart) 0 sliding scale doses subcut TIDWM insulin detemir U-100 (Levemir FlexTouch U-100 Insulin) 8 - 10 units subcut BEDTIME miconazole nitrate 2% 1 appful vaginal BEDTIME omeprazole 40 mg PO DAILY pen needle, diabetic (BD Ultra-Fine Original Pen Needle) As directed sertraline 150 mg PO DAILY simvastatin 40 mg PO BEDTIME trazodone 200 mg (2 x 100 mg) PO BEDTIME ubrogepant (Ubrelvy) 1/2 -1 tab PO,; May repeat in 2 hours. Max 200 mg/day umeclidinium 62.5 mcg/actuation (Incruse Ellipta) 1 inh inhalation DAILY HPI Comments Details: 63y/o female comes for botox for migraines ??? Most frequent reported adverse reactions following injection of botox for chronic migraine include neck pain (9%), headache(5%), eyelid ptosis(4%), migraine(4%), muscular weakness(4%), musculuskeletal stiffness(4%), bronchitis(3%), injection site pain (3%), musculoskeletal pain(3%), myalgia(3%), facial paresis(2%), HTN(2%) and muscle spasms(2%) were discussed in detail. ??? Botulinum toxin typeA 200units Lot no [id number] expiration Apr 2026 was diluted with 4 cc of normal saline . ??? Muscles injected- ??? Frontalis 4 sites ??? Procerus 1 site ??? Academic Records Specialist- 2 sites ??? Temporalis- 8 sites ??? Occipitalis- 6 sites ??? Cervical paraspinals- 4 sites ? 5 units each in 25 site ??? Deng trapezius - 30units each ??? Total use- 185units ??? Discarded-15units PFSH Medical History Migraine Chronic migraine without aura Surgical History Hx of discectomy S/P knee surgery History of cataract surgery H/O cervical spine surgery H/O: hysterectomy History of appendectomy Family History Father Heart disease Cancer Family/Other Heart disease Mother Alzheimer disease Bipolar 1 disorder Scoliosis Social History Household Members: None Household Members Other:: close relationship with and son Housing: Apartment Do you presently have visiting nurse or other home services: No Alcohol intake: never Patient Tobacco Use Status: Current someday Tobacco user Tobacco use type: Cigarette Cigarettes Per Day: 5 Years Smoked: 41 Second Hand Smoke Exposure: No service: No Sexual orientation: Straight/Heterosexual Physical Exam Const General: cooperative, healthy appearing, comfortable and no acute distress Nutritional Appearance: average body habitus Orientation/consciousness: patient oriented x3 Eyes Pupils: Equal, round and reactive pupils present Neuro General: patient oriented x3, tone normal, moves all extremities and no focal motor deficits Cranial nerves: Yes Equal, round and reactive pupils present, Yes Bilaterally intact EOM present, Yes Nystagmus not present and Yes Normal facial strength present Cognition (Neuro): normal cognition Gait exam (Neuro): Antalgic gait present Office Procedures Botulinum toxin Injection 47891 - Migraine Procedure code (CPT) selection complete Office Meds onabotulinumtoxinA 200 unit solution for injection Performing Provider: Priscilla Antunez MD [place] [facility] [place] [facility] Administered by: Priscilla Antunez MD on 01/13/24 09:38 Dose Route Admin Location Dispensed Lot Number Expiration Date [facility] Marketing Copywriter 185 unit IM 200 units [id number] 04/10/26 8200-0481-12 ALLERGAN/BOTOX Assessment & Plan Assessment & Plan (1) Migraine with aura, intractable, without status migrainosus: Code(s): G43.119 - Migraine with aura, intractable, without status migrainosus Category: Medical (2) Chronic migraine without aura: Code(s): G43.709 - Chronic migraine without aura, not intractable, without status migrainosus Category: Medical Qualifiers: Status migrainosus presence: without status migrainosus Intractability: intractable Qualified Code(s): G43.719 - Chronic migraine without aura, intractable, without status migrainosus Plan Patient tolerated the procedure well she will call with any side effects Orders: Orders AMB Botulinum toxin Injection Today G43.719 - Chronic migraine without aura, intractable, without status migrainosus Medications: New onabotulinumtoxinA 200 units IM ONCE 1 ea 0RF migraine headache G43.719 - Chronic migraine without aura, intractable, without status migrainosus Coding Level of Care Code Est Pt Level 1 (12938) Diagnoses Migraine with aura, intractable, without status migrainosus G43.119 Intractable chronic migraine without aura and without status migrainosus G43.719 Status migrainosus presence: without status migrainosus Intractability: intractable CPT Codes Botox Injection - Botox 3: 91347 - Migraine ([id number])
== END 2024-01-13 08:18 | disposition home or self-care (01) ==
LOC: HO.HSMS 07:56
PROVIDERS: PCP Internal Medicine; Visit Provider Psychiatry & Neurology Neurology
DX: G43.E19 Chronic migraine with aura, intractable, without status migrainosus (principal)
CPT/HCPCS: 64615

== ENCOUNTER → 2024-01-13 07:55 | Outpatient (BNVA) | payer OTHER, SELFPAY | PROVIDERS: PCP Internal Medicine; Visit Provider Psychiatry & Neurology Neurology | DX: G43.719 Chronic migraine without aura, intractable, without status migrainosus (principal) | CPT/HCPCS: 64615; 99211; J0585 ==

== ENCOUNTER 2024-05-25 09:36 | Outpatient (AMB) | payer OTHER, MEDICAID, SELFPAY ==
[2024-05-25 09:38] VITALS: BP 138/90; PULSE 96; O2SAT 97; BMI 30.9
--- NOTE | 2024-05-25 09:38 | A.OFFVIS_ITS ---
Vital Signs 05/25/24 09:38 Height 5 ft 2 in Weight 169 lb BMI 30.9 BP 138/90 H Blood Pressure Location Rt brachial Position Sitting Pulse 96 Pulse Source Pulse Oximeter Pulse Oximetry (%) 97 Oxygen Delivery Method Room Air Intake Visit Reasons: Botox Intake Note: Patient presents for botox injection. practice supplied Allergies codeine Allergy (Verified 05/25/24 09:40) Stomach Upset ropinirole [From Requip] Allergy (Verified 05/25/24 09:40) Muscle Pain acetaminophen [From Vicodin] Adverse Reaction (Mild, Verified 05/25/24 09:40) Stomach Upset hydrocodone [From Vicodin] Adverse Reaction (Mild, Verified 05/25/24 09:40) Stomach Upset HPI Comments Details: 63y/o female comes for botox for migraines ??? Most frequent reported adverse reactions following injection of botox for chronic migraine include neck pain (9%), headache(5%), eyelid ptosis(4%), migraine(4%), muscular weakness(4%), musculuskeletal stiffness(4%), bronchitis(3%), injection site pain (3%), musculoskeletal pain(3%), myalgia(3%), facial paresis(2%), HTN(2%) and muscle spasms(2%) were discussed in detail. ??? Botulinum toxin typeA 200units Lot no [id number] expiration June 2026 was diluted with 4 cc of normal saline . ??? Muscles injected- ??? Frontalis 4 sites ??? Procerus 1 site ??? Telecommunications Line Mechanic- 2 sites ??? Temporalis- 8 sites ??? Occipitalis- 6 sites ??? Cervical paraspinals- 4 sites ? 5 units each in 25 site ??? Deng trapezius - 30units each ??? Total use- 185units ??? Discarded-15units PFSH Medical History Migraine Chronic migraine without aura Surgical History Hx of discectomy S/P knee surgery History of cataract surgery H/O cervical spine surgery H/O: hysterectomy History of appendectomy Family History Father Heart disease Cancer Family/Other Heart disease Mother Alzheimer disease Bipolar 1 disorder Scoliosis Social History Household Members: None Household Members Other:: close relationship with and son Housing: Apartment Do you presently have visiting nurse or other home services: No Alcohol intake: never Patient Tobacco Use Status: Current someday Tobacco user Tobacco use type: Cigarette Cigarettes Per Day: 5 Years Smoked: 41 Second Hand Smoke Exposure: No service: No Sexual orientation: Straight/Heterosexual Physical Exam Vital Signs: Last Vital Signs Pulse 96 05/25/24 09:38 BP 138/90 H 05/25/24 09:38 Pulse Ox 97 05/25/24 09:38 Oxygen Delivery Method Room Air 05/25/24 09:38 BMI result Body Mass Index 30.9 Const General: cooperative, healthy appearing, comfortable and no acute distress Nutritional Appearance: average body habitus Orientation/consciousness: patient oriented x3 Eyes Pupils: Equal, round and reactive pupils present Neuro General: patient oriented x3, tone normal, moves all extremities and no focal motor deficits Cranial nerves: Yes Equal, round and reactive pupils present, Yes Bilaterally intact EOM present, Yes Nystagmus not present and Yes Normal facial strength present Cognition (Neuro): normal cognition Gait exam (Neuro): Antalgic gait present Office Procedures Botulinum toxin Injection 90333 - Migraine Procedure code (CPT) selection complete Office Meds onabotulinumtoxinA 200 unit solution for injection Performing Provider: Priscilla Antunez MD Performing Location: [facility] – [place] [facility] Administered by: Priscilla Antunez MD on 05/25/24 10:01 Dose Route Admin Location Dispensed Lot Number Expiration Date [facility] Transmission Engineer 185 unit subcut 200 units [id number] ALLERGAN/BOTOX Comments: see HPI Assessment & Plan Assessment & Plan (1) Migraine with aura, intractable, without status migrainosus: Code(s): G43.119 - Migraine with aura, intractable, without status migrainosus Category: Medical (2) Chronic migraine without aura: Code(s): G43.709 - Chronic migraine without aura, not intractable, without status migrainosus Category: Medical Qualifiers: Status migrainosus presence: without status migrainosus Intractability: intractable Qualified Code(s): G43.719 - Chronic migraine without aura, int ractable, without status migrainosus Plan Patient tolerated the procedure well she will call with any side effects Orders: Orders AMB Botulinum toxin Injection Today G43.719 - Chronic migraine without aura, intractable, without status migrainosus Medications: New onabotulinumtoxinA 200 units subcut ONCE 1 ea 0RF migraine G43.719 - Chronic migraine without aura, intractable, without status migrainosus Coding Level of Care Code Est Pt Level 1 (50512) Diagnoses Migraine with aura, intractable, without status migrainosus G43.119 Intractable chronic migraine without aura and without status migrainosus G43.719 Status migrainosus presence: without status migrainosus Intractability: intractable CPT Codes Botox Injection - Botox 3: 46831 - Migraine ([id number])
== END 2024-05-25 10:00 | disposition home or self-care (01) ==
LOC: HO.HSMS 09:37
PROVIDERS: PCP Internal Medicine; Visit Provider Psychiatry & Neurology Neurology
DX: G43.719 Chronic migraine without aura, intractable, without status migrainosus (principal)
CPT/HCPCS: 64615

== ENCOUNTER → 2024-05-25 09:36 | Outpatient (BNVA) | payer OTHER, SELFPAY | PROVIDERS: PCP Internal Medicine; Visit Provider Psychiatry & Neurology Neurology | DX: G43.E11 Chronic migraine with aura, intractable, with status migrainosus (principal) | CPT/HCPCS: 64615; 99211; J0585 ==

== ENCOUNTER 2024-08-24 10:50 | Outpatient (AMB) | payer OTHER, SELFPAY ==
--- NOTE | 2024-08-24 10:56 | MHC.OFFVIS ---
Vital Signs 08/24/24 11:01 Height 5 ft 2 in Weight 169 lb BMI 30.9 Intake Visit Reasons: BOTOX Intake Note: Patient presents for botox injection. practice supplied Allergies codeine Allergy (Verified 08/24/24 11:02) Stomach Upset ropinirole (From Requip) Allergy (Verified 08/24/24 11:02) Muscle Pain acetaminophen (From Vicodin) Adverse Reaction (Mild, Verified 08/24/24 11:02) Stomach Upset hydrocodone (From Vicodin) Adverse Reaction (Mild, Verified 08/24/24 11:02) Stomach Upset Medication List - Last Reconciled 08/26/24 by Priscilla Antunez MD blood sugar diagnostic (FreeStyle Precision Garrett Strips) As directed budesonide-formoterol 160-4.5 mcg/actuation (Symbicort) 2 puffs inhalation BID clonazepam 0.5 mg PO TID PRN flash glucose scanning reader (Glowing PlantStyle Dharmesh 2 [place]) As directed flash glucose sensor (FreeStyle Dharmesh 2 Sensor kit) As directed gabapentin 300 mg PO TID insulin aspart U-100 (Novolog FlexPen U-100 Insulin aspart) 0 sliding scale doses subcut TIDWM insulin detemir U-100 (Levemir FlexTouch U-100 Insulin) 8 - 10 units subcut BEDTIME miconazole nitrate 2% 1 appful vaginal BEDTIME omeprazole 40 mg PO DAILY pen needle, diabetic (BD Ultra-Fine Original Pen Needle) As directed sertraline 150 mg PO DAILY simvastatin 40 mg PO BEDTIME trazodone 200 mg (2 x 100 mg) PO BEDTIME ubrogepant (Ubrelvy) 1/2 -1 tab PO,; May repeat in 2 hours. Max 200 mg/day umeclidinium 62.5 mcg/actuation (Incruse Ellipta) 1 inh inhalation DAILY HPI Comments Details: 63y/o female comes for botox for migraines ??? Most frequent reported adverse reactions following injection of botox for chronic migraine include neck pain (9%), headache(5%), eyelid ptosis(4%), migraine(4%), muscular weakness(4%), musculuskeletal stiffness(4%), bronchitis(3%), injection site pain (3%), musculoskeletal pain(3%), myalgia(3%), facial paresis(2%), HTN(2%) and muscle spasms(2%) were discussed in detail. ??? Botulinum toxin typeA 200units Lot no [id number] expiration Dec 2026 was diluted with 4 cc of normal saline . ??? Muscles injected- ??? Frontalis 4 sites ??? Procerus 1 site ??? Senior Software Qa Analyst- 2 sites ??? Temporalis- 8 sites ??? Occipitalis- 6 sites ??? Cervical paraspinals- 4 sites ? 5 units each in 25 site ??? Deng trapezius - 30units each ??? Total use- 185units ??? Discarded-15units PFSH Medical History Migraine Chronic migraine without aura Surgical History Hx of discectomy S/P knee surgery History of cataract surgery H/O cervical spine surgery H/O: hysterectomy History of appendectomy Family History Father Heart disease Cancer Family/Other Heart disease Mother Alzheimer disease Bipolar 1 disorder Scoliosis Social History Household Members: None Household Members Other:: close relationship with and son Housing: Apartment Do you presently have visiting nurse or other home services: No Alcohol intake: never Patient Tobacco Use Status: Current someday Tobacco user Tobacco use type: Cigarette Cigarettes Per Day: 5 Years Smoked: 41 Second Hand Smoke Exposure: No service: No Sexual orientation: Straight/Heterosexual Physical Exam Vital Signs: BMI result Body Mass Index 30.9 Const General: cooperative, healthy appearing, comfortable and no acute distress Nutritional Appearance: average body habitus Orientation/consciousness: patient oriented x3 Eyes Pupils: Equal, round and reactive pupils present Neuro General: patient oriented x3, tone normal, moves all extremities and no focal motor deficits Cranial nerves: Yes Equal, round and reactive pupils present, Yes Bilaterally intact EOM present, Yes Nystagmus not present and Yes Normal facial strength present Cognition (Neuro): normal cognition Gait exam (Neuro): Antalgic gait present Office Procedures Botulinum toxin Injection 83961 - Migraine Procedure code (CPT) selection complete Office Meds onabotulinumtoxinA 200 unit solution for injection Performing Provider: Priscilla Antunez MD Performing Location: [facility] [place] [facility] Administered by: Priscilla Antunez MD on 08/26/24 14:25 Dose Route Admin Location Dispensed Lot Number Expiration Date [facility] Resin Shaver 185 unit subcut 200 units [id number] ALLERGAN/BOTOX Total Dispensed Waste 200 units 7.5 % Comments: see hpi Assessment & Plan Assessment & Plan (1) Migraine with aura, intractable, without status migrainosus: Code(s): G43.119 - Migraine with aura, intractable, without status migrainosus Category: Medical (2) Chronic migraine without aura: Code(s): G43.709 - Chronic migraine without aura, not intractable, without status migrainosus Category: Medical Qualifiers: Status migrainosus presence: without status migrainosus Intractability: intractable Qualified Code(s): G43.719 - Chronic migraine without aura, intractable, without status migrainosus Plan Patient tolerated the procedure well she will call with any side effects Orders: Orders AMB Botulinum toxin Injection 08/24/24 G43.719 - Chronic migraine without aura, intractable, without status migrainosus Coding Level of Care Code Est Pt Level 1 (75680) Diagnoses Migraine with aura, intractable, without status migrainosus G43.119 Intractable chronic migraine without aura and without status migrainosus G43.719 Status migrainosus presence: without status migrainosus Intractability: intractable CPT Codes Botox Injection - Botox 3: 66249 - Migraine ([id number])
[2024-08-24 11:01] VITALS: BMI 30.9
--- OUTSIDE RECORDS SUMMARY | 2024-08-24 12:19 | XMS_ITS | Clinical Summary ---
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 fracture: 7.4% Population: [place] () IMPRESSION: Osteopenia. The NOF guidelines recommend that FDA approved medical therapies beconsidered in postmenopausal women and men age >50 years with a: i. Hip or vertebral (clinical or morphometric) fracture ii. T score of < -2.5 at the spine or hip iii. 10 year fracture probability by FRAX of >3% for hip fracture, or >20%for major osteoporotic fracture PLEASE NOTE: W.H.O. classification is based on lowest measured density at the spine,femoral neck, or total hip.This classification has prognostic significancewhen applied to post menopausal women and older men. 1) The World Health Organization defines low BMD as follows: T-score Normal at or > -1 Osteopenia < -1 and > -2.5 Osteoporosis at or < -2.5 withoutfractures Established osteoporosis < -2.5 with fractures -------- FINAL REPORT -------- Dictated By: Sulma Reeves Dictated Date: 08/17/2024 19:17 ET Assigned Physician: Sulma Reeves Reviewed and Electronically Signed By: Sulma Reeves Signed Date: 08/17/2024 19:18 ET Workstation ID: [id number] Transcribed By: Self Edit Transcribed Date: 08/17/2024 19:17 ET Mary Barahona MD IMG DXA PROCEDURES Final Result * POC Urine Auto W/O Micro (08/10/2024 9:44 AM EDT) Glucose UA POC Negative Negative, Trace mg/dL Bilirubin UA POC Negative Negative, Small Ketones UA POC Negative Negative, Trace Specific [place] UA POC 1.020 Blood UA POC Negative Negative, Large PH UA POC 5.5 Protein UA POC Negative Negative, >=300 mg/dL Urobilinogen UA POC 0.2 E.U./dL mg/dL Nitrite UA POC Negative Negative Leukocytes UA POC Negative Negative Urine Urine specimen obtained by clean catch procedure / Unknown 08/10/2024 9:44 AM EDT Lillian Hill MD POINT OF CARE TEST ENTER/EDIT O RDERABLES Final Result * XR Pelvis 1-2 Views (07/29/2024 11:28 AM EDT) Anatomical Region Laterality Modality Body, Pelvis Computed Radiogr aphy Narrative 07/30/2024 1:07 PM EDT AP pelvis x-ray obtained today was reviewed. This shows no significant degenerative changes involving either hip. No obvious evidence of osteonecrosis, stress fracture, or concerning bony or soft tissue lesions. Lower lumbar spondylosis with partially imaged left-sided scoliosis. No significant abnormalities noted about the right lateral hip. Surgical clip within the pelvis. us Tremaine Collins MD IMG XR PROCEDURES Fin al Result * CO ARTHROCENTESIS/ASPIRATION/INJECTION MAJOR JOINT/BURSA W/O U/S GUIDANCE (07/29/2024 11:00 AM EDT) Narrative Tremaine Collins MD - 07/29/2024 11:00 AM EDT Tremaine Collins MD ? 07/29/2024 12:35 PM L Inj/Asp: R greater trochanteric bursa Indications: pain Details: 22 G needle, lateral approach Medications: 2 mL BUPivacaine HCl 0.5 %; 2 mL lidocaine 1 %; 40 mg triamcinolone acetonide 40 mg/mL Outcome: tolerated well, no immediate complications Procedure: After discussion of risks and benefits, informed consent was verbally obtained for RIGHT lateral hip corticosteroid injection. ??The patient was positioned laterally on the exam table and lateral hip exposed. ??The point of maximal tenderness was identified. This was sterilized with chlorhexidine and alcohol. ??I then injected 2ml of 1% plain Lidocaine, 2ml 0.25% plain bupivacaine, and 40 mg of Kenalog just below the level of the fascia without resistance or blood on return. Hemostasis was achieved and a sterile Band-Aid was applied. ??The patient tolerated the procedure well. ??Postinjection risks and instructions were reviewed including activity modification, cold therapy, potential NSAIDs use, effects on blood sugar levels, and monitoring for signs of complications. ?? Spine exam was completed after injection, and sciatic and femoral nerves were intact following injection. Informed Consent: ??Laterality: ??Right ??Relevant images/test results available and reviewed: yes ?Health status cleared: ??Yes ??Procedure/treatment, purpose, treatment alternatives, risks/potential complications and benefits explained: yes ?Patient questions answered: yes ?Patient agrees, verbalizes understanding, and wants to proceed: yes ?Consent given by: ??Patient ??Informed consent discussion completed by Physician/SHONDA with patient: ?? Verbal ??Pre-procedure timeout performed: yes ?? us Tremaine Collins MD IN CLINIC/BEDSIDE ORD ERABLES Final Result * XR Knee 3 Views Left (07/15/2024 11:22 AM EDT) Anatomical Region Laterality Modality Lower Extremities, Knee Left Computed Radiography 07/15/2024 2:52 PM EDT Narrative 07/15/2024 2:53 PM EDT Left knee, 3 views. History status post left knee replacement. Pain. There is evidence of total left knee replacement with satisfactory position of the prosthesis component. No evidence of fractures, dislocations or joint effusion. Alignment is maintained. CONCLUSIONS: Status post total left knee replacement with satisfactory position of the prosthesis. -------- FINAL REPORT -------- Dictated By: Halina Billingsley Dictated Date: 07/15/2024 14:52 ET Assigned Physician: Halina Billingsley Reviewed and Electronically Signed By: Halina Billingsley Signed Date: 07/15/2024 14:53 ET Workstation ID: [id number] Transcribed By: Self Edit Transcribed Date: 07/15/2024 14:52 ET Procedure Note Halina Billingsley MD - 07/15/2024 Left knee, 3 views. History status post left knee replacement. Pain. There is evidence oftotal left knee replacement with satisfactory position of the prosthesiscomponent. No evidence of fractures, dislocations or joint effusion.Alignment is maintained. CONCLUSIONS: Status post total left knee replacement with satisfactoryposition of the prosthesis. -------- FINAL REPORT -------- Dictated By: Halina Billingsley Dictated Date: 07/15/2024 14:52 ET Assigned Physician: Halina Billingsley Reviewed and Electronically Signed By: Halina Billingsley Signed Date: 07/15/2024 14:53 ET Workstation ID: [id number] Transcribed By: Self Edit Transcribed Date: 07/15/2024 14:52 ET us Brenda De Santiago MD IMG XR PROCEDURES Final Result * XR Esophagram (07/01/2024 9:27 AM EDT) Anatomical Region Laterality Modality Head and Neck Radiographic Cheryl ging 07/01/2024 11:3 9 AM EDT Impressions 07/02/2024 1:25 PM EDT Flash laryngeal penetration without evidence of swetha aspiration on rapid sequence swallowing of thin barium, otherwise normal double contrast esophagram. -------- FINAL REPORT -------- Dictated By: Leonor Graff Dictated Date: 07/01/2024 11:39 ET Assigned Physician: Sonny Cadena Reviewed and Electronically Signed By: Sonny Cadena Signed Date: 07/02/2024 13:25 ET Workstation ID: [id number] Transcribed By: Self Edit Transcribed Date: 07/01/2024 11:47 ET Resident/PA/ENGLISH DRAWER: Leonor Graff Narrative 07/02/2024 1:25 PM EDT FINDINGS: Double contrast esophagram performed. COMPARISON: Barium swallow November 08, 2020 HISTORY: Patient is a 63-year-old female with history of severe GERD, globus sensation. [employer] Maker radiographs: 1 view chest radiograph demonstrates cardiac and mediastinal contours within normal limits. Lungs are clear bilaterally. Costophrenic angles are sharp. Surgical clips are noted to the right upper quadrant, indicating history of cholecystectomy. Cervical surgical hardware is noted. Elevated right hemidiaphragm, also seen on prior imaging. One view lateral soft tissue neck demonstrates no prevertebral soft tissue masses. Airway is widely patent. Moderate bony degenerative changes of the cervical spine are noted. There is an anterior cervical fusion noted at the level of C5-7. Effervescent crystals were administered orally. Thick and thin barium were administered orally under fluoroscopic control. Pharyngoesophagram: Rapid sequence imaging of the hypopharynx during swallowing demonstrates prompt initiation of swallowing. There is normal soft palate elevation. Flash laryngeal penetration without swetha aspiration. There is no residual in the vallecula nor in the piriform sinuses. Thoracic esophagus: Normal distensibility, motility and mucosal pattern without evidence of ulceration, stricture or mass formation. Hiatal hernia: None Reflux: Unable to elicit 13mm Barium pill: Swallowed without difficulty. Prompt passage of pill from the esophagus into the stomach. DAP: 252.0 uGym^2 Procedure Note Sonny Cadena MD - 07/02/2024 FINDINGS: Double contrast esophagram performed. COMPARISON: Barium swallow November 08, 2020 HISTORY: Patient is a 63-year-old female with history of severe GERD,globus sensation. [employer] Maker radiographs: 1 view chest radiograph demonstrates cardiac andmediastinal contours within normal limits. Lungs are clear bilaterally.Costophrenic angles are sharp. Surgical clips are noted to the right upperquadrant, indicating history of cholecystectomy. Cervical surgicalhardware is noted. Elevated right hemidiaphragm, also seen on priorimaging. One view lateral soft tissue neck demonstrates no prevertebralsoft tissue masses. Airway is widely patent. Moderate bony degenerativechanges of the cervical spine are noted. There is an anterior cervicalfusion noted at the level of C5-7. Effervescent crystals were administered orally. Thick and thin barium wereadministered orally under fluoroscopic control. Pharyngoesophagram: Rapid sequence imaging of the hypopharynx duringswallowing demonstrates prompt initiation of swallowing. There is normalsoft palate elevation. Flash laryngeal penetration without frankaspiration. There is no residual in the vallecula nor in the piriformsinuses. Thoracic esophagus: Normal distensibility, motility and mucosal patternwithout evidence of ulceration, stricture or mass formation. Hiatal hernia: None Reflux: Unable to elicit 13mm Barium pill: Swallowed without difficulty. Prompt passage of pillfrom the esophagus into the stomach. DAP: 252.0 uGym^2 IMPRESSION: Flash laryngeal penetration without evidence of swetha aspiration on rapidsequence swallowing of thin barium, otherwise normal double contrastesophagram. -------- FINAL REPORT -------- Dictated By: Leonor Graff Dictated Date: 07/01/2024 11:39 ET Assigned Physician: Sonny Cadena Reviewed and Electronically Signed By: Sonny Cadena Signed Date: 07/02/2024 13:25 ET Workstation ID: [id number] Transcribed By: Self Edit Transcribed Date: 07/01/2024 11:47 ET Resident/PA/ENGLISH DRAWER: Leonor Graff us Gene MARCOS IMG FLUOROSCOPY PROCEDURES Mindi l Result * MG Mammo Digital Screening w Stuart bilat (06/17/2024 2:44 PM EDT) Anatomical Region Laterality Modality Breast Bilateral Mammography 06/18/2024 8:03 AM EDT Impressions 06/18/2024 9:38 AM EDT Benign. BI-RADS CATEGORY: 1 - NEGATIVE RECOMMENDATION: Screening bilateral mammogram is recommended in 1 year. Mammo Location: [facility], [address] [place] [address], [id number], . -------- FINAL REPORT -------- Dictated By: Corina Schulte Dictated Date: 06/18/2024 08:03 ET Assigned Physician: Corina Schulte Reviewed and Electronically Signed By: Corina Schulte Signed Date: 06/18/2024 09:38 ET Workstation ID: [id number] Transcribed By: Self Edit Transcribed Date: 06/18/2024 08:05 ET Narrative 06/18/2024 9:38 AM EDT CLINICAL: 63 years old, Female, routine annual exam. COMPARISON: Mammogram 09/07/2018 and 01/20/2017. TECHNIQUE: Bilateral MLO and CC views were obtained digitally with 3-D mammogram (digital breast tomosynthesis). Computer-aided detection was utilized in evaluation of this exam (CAD). FINDINGS: There is no evidence of suspicious mass or architectural distortion. ??No worrisome calcifications are evident. ??There has been no significant change from prior exam(s). ?? BREAST DENSITY: B - There are scattered areas of fibroglandular density. Procedure Note Corina Schulte MD - 06/18/2024 CLINICAL: 63 years old, Female, routine annual exam. COMPARISON: Mammogram 09/07/2018 and 01/20/2017. TECHNIQUE: Bilateral MLO and CC views were obtained digitally with 3-Dmammogram (digital breast tomosynthesis). Computer-aided detection wasutilized in evaluation of this exam (CAD). FINDINGS: There is no evidence of suspicious mass or architectural distortion. Noworrisome calcifications are evident. There has been no significantchange from prior exam(s). BREAST DENSITY: B - There are scattered areas of fibroglandular density. IMPRESSION: Benign. BI-RADS CATEGORY: 1 - NEGATIVE RECOMMENDATION: Screening bilateral mammogram is recommended in 1 year. Mammo Location: [facility], [address] [place] [address], [id number], . -------- FINAL REPORT -------- Dictated By: Corina Schulte Dictated Date: 06/18/2024 08:03 ET Assigned Physician: Corina Schulte Reviewed and Electronically Signed By: Corina Schulte Signed Date: 06/18/2024 09:38 ET Workstation ID: [id number] Transcribed By: Self Edit Transcribed Date: 06/18/2024 08:05 ET us Mary Barahona MD IMG BI PROCEDURES Final Result * (ABNORMAL) Hemoglobin A1c (06/02/2024 10:17 AM EDT) Hemoglobin A1C 7.2(H) <6.5 % LAB CHEMISTRY METHOD 06/02/2024 8:01 PM EDT [facility] Mean Bld Glu Estim. 160 mg/dL LAB CHEMISTRY METHOD 06/02/2024 8:01 PM EDT [facility] Blood Venous blood specimen / Unknown Venipuncture / Unknown 06/02/2024 10:17 AM EDT 06/02/2024 10:17 AM EDT us Natasha MARCOS LAB BLOOD ORDERABLES Final Re sult [facility] [address] [place] [address], * (ABNORMAL) Lipid panel with reflex to direct LDL (05/11/2024 9:26 AM EST) Cholesterol 231(H) 0 - 200 mg/dL LAB CHEMISTRY METHOD 05/11/2024 12:24 PM EST [facility] Triglycerides 104 0 - 150 mg/dL LAB CHEMISTRY METHOD 05/11/2024 12:24 PM EST [facility] HDL 64 >=40 mg/dL LAB CHEMISTRY METHOD 05/11/2024 12:24 PM [facility] LDL Calculated 146(H) 0 - 100 mg/dL LAB CHEMISTRY METHOD 05/11/2024 12:24 PM [facility] VLDL Cholesterol Donte 20.8 mg/dL LAB CHEMISTRY METHOD 05/11/2024 12:24 PM [facility] Non HDL Chol. (LDL+VLDL) 167(H) <145 mg/dL LAB CHEMISTRY METHOD 05/11/2024 12:24 PM [facility] Chol/HDL Ratio 3.6 0.0 - 4.4 LAB CHEMISTRY METHOD 05/11/2024 12:24 PM [facility] Blood Venous blood specimen / Unknown Venipuncture / Unknown 05/11/2024 9:26 AM EST 05/11/2024 9:26 AM EST us Natasha MARCOS LAB BLOOD ORDERABLES Final Re sult [facility] [address] [place] [address], * (ABNORMAL) Comprehensive metabolic panel (05/11/2024 9:26 AM EST) Sodium 138 133 - 145 mmol/L LAB CHEMISTRY METHOD 05/11/2024 12:24 PM [facility] Potassium 4.2 3.5 - 5.5 mmol/L LAB CHEMISTRY METHOD 05/11/2024 12:24 PM [facility] Chloride 107 96 - 110 mmol/L LAB CHEMISTRY METHOD 05/11/2024 12:24 PM [facility] CO2 28 21 - 32 mmol/L LAB CHEMISTRY METHOD 05/11/2024 12:24 PM [facility] Anion Gap 3 3 - 11 LAB CHEMISTRY METHOD 05/11/2024 12:24 PM [facility] Glucose 140(H) 70 - 100 mg/dL LAB CHEMISTRY METHOD 05/11/2024 12:24 PM [facility] BUN 11 5 - 25 mg/dL LAB CHEMISTRY METHOD 05/11/2024 12:24 PM [facility] Creatinine 0.81 0.50 - 1.10 mg/dL LAB CHEMISTRY METHOD 05/11/2024 12:24 PM [facility] eGFR 81 >=60 mL/min/1. 73m2 LAB CHEMISTRY METHOD 05/11/2024 12:24 PM [facility] Comment:Calculation based on the??Chronic Kidney Disease Epidemiology Collaboration (CKD-EPI) equation refit??without adjustment for race. BUN/Creatinine Ratio 13.6 LAB CHEMISTRY METHOD 05/11/2024 12:24 PM [facility] Calcium 9.3 8.5 - 10.5 mg/dL LAB CHEMISTRY METHOD 05/11/2024 12:24 PM [facility] AST (SGOT) 11 10 - 42 unit/L LAB CHEMISTRY METHOD 05/11/2024 12:24 PM [facility] ALT (SGPT) 24 10 - 60 unit/L LAB CHEMISTRY METHOD 05/11/2024 12:24 PM [facility] Alkaline Phosphatase 49 42 - 121 unit/L LAB CHEMISTRY METHOD 05/11/2024 12:24 PM [facility] Total Protein 7.4 6.0 - 8.0 g/dL LAB CHEMISTRY METHOD 05/11/2024 12:24 PM [facility] Albumin 3.9 3.2 - 5.0 g/dL LAB CHEMISTRY METHOD 05/11/2024 12:24 PM [facility] Total Bilirubin 0.7 0.0 - 1.4 mg/dL LAB CHEMISTRY METHOD 05/11/2024 12:24 PM [facility] Blood Venous blood specimen / Unknown Venipuncture / Unknown 05/11/2024 9:26 AM EST 05/11/2024 9:26 AM EST Gene MARCOS LAB BLOOD ORDERABLES Final Resu lt [facility] [address] [place] [address], [place] [phone] * Microalbumin creatinine urine ratio (01/15/2024 10:37 AM EST) [facility] Creatinine, Urine 125.0 mg/dL LAB CHEMISTRY METHOD 01/15/2024 2:25 PM EST [facility] Microalb, Ur 6.4 0.0 - 29.0 mg/L LAB CHEMISTRY METHOD 01/15/2024 2:25 PM EST [facility] Microalb/Creat Ratio 5 <30 mg/g creat LAB CHEMISTRY METHOD 01/15/2024 2:25 PM EST [facility] Urine Urine specimen obtained by clean catch procedure / Unknown Non-blood Collection / Unknown 01/15/2024 10:37 AM EST 01/15/2024 10:38 AM EST Mary Barahona MD LAB URINE ORDERABLES Final Resul t Performing Organization Address [facility] Co de Phone Number [facility] [address] [place] [address], [place] [phone] * Diabetes Eye Exam (08/08/2023) [facility] Diabetes: Annual Retina Eye Exam Abstracted Historical Provider HEALTH MAINTENANCE Final Result * Colonoscopy (06/05/2021) [facility] Colonoscopy No Interpretation , Abstracted Anatomical Region Laterality Modality Other Historical Provider HEALTH MAINTENANCE Final Result * Pap Smear (11/15/2020) [facility] Pap smear No Interpretation , Abstracted Comment:Done - hysterectomy Historical Provider HEALTH MAINTENANCE Final Result * Hepatitis C Screening (08/29/2016) Hepatitis C Screening Abstracted us Historical Provider HEALTH MAINTENANCE Final Result from Last 3 Months or Most Recently Relevant to Health Maintenance Insurance [facility] MEDIC[facility] Member Subscriber Plan / Payer (Ef fective 2018-Present) Name:YOLANDA DEL CIDIN Relation to Subscriber:Self Name:Rigo Del Cid Payer ID:[id number] Group ID:[id number] Type:Not on file Address: [facility] [address] [id number] Advance Directives Documents on File Type Date Recorded Patient Winder Operator Expl anation Health Care Decision (hx) 01/31/2015 AD ASH DIRECTIVE Health Care Decision (hx) 01/31/2015 AD ASH DIRECTIVE Health Care Decision (hx) 01/31/2015 AD ASH DIRECTIVE Health Care Decision (hx) 01/31/2015 AD ASH DIRECTIVE Health Care Decision (hx) 01/31/2015 AD ASH DIRECTIVE Health Care Decision (hx) 01/31/2015 AD ASH DIRECTIVE Health Care Decision (hx) 01/31/2015 AD ASH DIRECTIVE Health Care Decision (hx) 01/31/2015 AD ASH DIRECTIVE Health Care Decision (hx) 01/31/2015 AD ASH DIRECTIVE Health Care Decision (hx) 01/31/2015 AD ASH DIRECTIVE Health Care Decision (hx) 01/31/2015 AD ASH DIRECTIVE Health Care Decision (hx) 01/31/2015 AD ASH DIRECTIVE Health Care Decision (hx) 01/31/2015 AD ASH DIRECTIVE Health Care Decision (hx) 01/31/2015 AD ASH DIRECTIVE Health Care Decision (hx) 01/31/2015 AD ASH DIRECTIVE Health Care Decision (hx) 01/31/2015 AD ASH DIRECTIVE Health Care Decision (hx) 01/31/2015 AD ASH DIRECTIVE Health Care Decision (hx) 01/31/2015 AD ASH DIRECTIVE Health Care Decision (hx) 01/31/2015 AD ASH DIRECTIVE Health Care Decision (hx) 01/31/2015 AD ASH DIRECTIVE Health Care Decision (hx) 01/31/2015 AD ASH DIRECTIVE Health Care Decision (hx) 01/31/2015 AD ASH DIRECTIVE Health Care Decision (hx) 01/31/2015 AD ASH DIRECTIVE Health Care Decision (hx) 01/31/2015 AD ASH DIRECTIVE Health Care Decision (hx) 01/31/2015 AD ASH DIRECTIVE Health Care Decision (hx) 01/31/2015 AD ASH DIRECTIVE Health Care Decision (hx) 01/31/2015 AD ASH DIRECTIVE Health Care Decision (hx) 01/31/2015 AD ASH DIRECTIVE Health Care Decision (hx) 01/31/2015 AD ASH DIRECTIVE Health Care Decision (hx) 01/31/2015 AD ASH DIRECTIVE Health Care Decision (hx) 01/31/2015 AD ASH DIRECTIVE Health Care Decision (hx) 01/27/2015 AD ASH DIRECTIVE Health Care Decision (hx) 01/27/2015 AD ASH DIRECTIVE Health Care Decision (hx) 01/27/2015 AD ASH DIRECTIVE Health Care Decision (hx) 01/27/2015 AD ASH DIRECTIVE Health Care Decision (hx) 01/27/2015 AD ASH DIRECTIVE Health Care Decision (hx) 01/27/2015 AD ASH DIRECTIVE Health Care Decision (hx) 01/27/2015 AD ASH DIRECTIVE Health Care Decision (hx) 01/27/2015 AD ASH DIRECTIVE Health Care Decision (hx) 01/27/2015 AD ASH DIRECTIVE Health Care Decision (hx) 01/27/2015 AD ASH DIRECTIVE Health Care Decision (hx) 01/27/2015 AD ASH DIRECTIVE Health Care Decision (hx) 01/27/2015 AD ASH DIRECTIVE Health Care Decision (hx) 01/27/2015 AD ASH DIRECTIVE Health Care Decision (hx) 01/27/2015 AD ASH DIRECTIVE Health Care Decision (hx) 01/27/2015 AD ASH DIRECTIVE Health Care Decision (hx) 01/27/2015 AD ASH DIRECTIVE Health Care Decision (hx) 01/27/2015 AD ASH DIRECTIVE Health Care Decision (hx) 01/27/2015 AD ASH DIRECTIVE Health Care Decision (hx) 01/27/2015 AD ASH DIRECTIVE Health Care Decision (hx) 01/27/2015 AD ASH DIRECTIVE Health Care Decision (hx) 01/27/2015 AD ASH DIRECTIVE Health Care Decision (hx) 01/27/2015 AD ASH DIRECTIVE Health Care Decision (hx) 01/27/2015 AD ASH DIRECTIVE Health Care Decision (hx) 01/27/2015 AD ASH DIRECTIVE Health Care Decision (hx) 01/27/2015 AD ASH DIRECTIVE Health Care Decision (hx) 01/27/2015 AD ASH DIRECTIVE Health Care Decision (hx) 01/27/2015 AD ASH DIRECTIVE Health Care Decision (hx) 01/27/2015 AD ASH DIRECTIVE Health Care Decision (hx) 01/27/2015 AD ASH DIRECTIVE Health Care Decision (hx) 01/27/2015 AD ASH DIRECTIVE Health Care Decision (hx) 01/27/2015 AD ASH DIRECTIVE Care Teams Automatic Stacker Relationship Specialty Start Date End Date Mary Barahona MD [address] [place] [id number] PCP - General Internal Medicine 02/12/11
== END 2024-08-24 11:24 | disposition home or self-care (01) ==
LOC: HO.HSMS 10:50
PROVIDERS: PCP Internal Medicine; Visit Provider Psychiatry & Neurology Neurology
DX: G43.719 Chronic migraine without aura, intractable, without status migrainosus (principal)
CPT/HCPCS: 64615

== ENCOUNTER → 2024-08-24 10:50 | Outpatient (BNVA) | payer OTHER, SELFPAY | PROVIDERS: PCP Internal Medicine; Visit Provider Psychiatry & Neurology Neurology | DX: G43.719 Chronic migraine without aura, intractable, without status migrainosus (principal); F17.210 Nicotine dependence, cigarettes, uncomplicated; Z79.4 Long term (current) use of insulin | CPT/HCPCS: 64615; 99211; J0585 ==

== ENCOUNTER 2024-11-23 11:39 | Outpatient (AMB) | payer OTHER, SELFPAY ==
--- NOTE | 2024-11-23 11:40 | A.OFFVIS_ITS ---
Vital Signs 11/23/24 11:41 Height 5 ft 2 in Weight 161 lb 6 oz BMI 29.5 BP 120/82 Blood Pressure Location Rt brachial Position Sitting Pulse 100 Pulse Source Pulse Oximeter Pulse Oximetry (%) 96 Oxygen Delivery Method Room Air Intake Visit Reasons: Botox Intake Note: Botox Guest House Manager Required: No Accompanied by: Self / Same As Patient Allergies codeine Allergy (Verified 11/23/24 11:41) Stomach Upset ropinirole (From Requip) Allergy (Verified 11/23/24 11:41) Muscle Pain acetaminophen (From Vicodin) Adverse Reaction (Mild, Verified 11/23/24 11:41) Stomach Upset hydrocodone (From Vicodin) Adverse Reaction (Mild, Verified 11/23/24 11:41) Stomach Upset Medication List - Last Reconciled 11/23/24 by Priscilla Antunez MD blood sugar diagnostic (FreeStyle Precision [place] Strips) As directed budesonide-formoterol 160-4.5 mcg/actuation (Symbicort) 2 puffs inhalation BID clonazepam 0.5 mg PO TID PRN flash glucose scanning reader (nxtControlStyle Dharmesh 2 [place]) As directed flash glucose sensor (FreeStyle Dharmesh 2 Sensor kit) As directed gabapentin 300 mg PO TID insulin aspart U-100 (Novolog FlexPen U-100 Insulin aspart) 0 sliding scale doses subcut TIDWM insulin detemir U-100 (Levemir FlexTouch U-100 Insulin) 8 - 10 units subcut BEDTIME miconazole nitrate 2% 1 appful vaginal BEDTIME pantoprazole 40 mg PO BID pen needle, diabetic (BD Ultra-Fine Original Pen Needle) As directed sertraline 150 mg PO DAILY simvastatin 40 mg PO BEDTIME solifenacin 5 mg PO DAILY tizanidine 4 mg PO TID trazodone 200 mg (2 x 100 mg) PO BEDTIME ubrogepant (Ubrelvy) 1/2 -1 tab PO,; May repeat in 2 hours. Max 200 mg/day umeclidinium 62.5 mcg/actuation (Incruse Ellipta) 1 inh inhalation DAILY HPI Comments Details: 64y/o female comes for botox for migraines ??? Most frequent reported adverse reactions following injection of botox for chronic migraine include neck pain (9%), headache(5%), eyelid ptosis(4%), migraine(4%), muscular weakness(4%), musculuskeletal stiffness(4%), bronchitis(3%), injection site pain (3%), musculoskeletal pain(3%), myalgia(3%), facial paresis(2%), HTN(2%) and muscle spasms(2%) were discussed in detail. ??? Botulinum toxin typeA 200units Lot no [id number] expiration Jan 2027 was diluted with 4 cc of normal saline . ??? Muscles injected- ??? Frontalis 4 sites ??? Procerus 1 site ??? Group Sales Manager- 2 sites ??? Temporalis- 8 sites ??? Occipitalis- 6 sites ??? Cervical paraspinals- 4 sites ? 5 units each in 25 site ??? Deng trapezius - 30units each ??? Total use- 185units ??? Discarded-15units PFSH Medical History Migraine Chronic migraine without aura Surgical History Hx of discectomy S/P knee surgery History of cataract surgery H/O cervical spine surgery H/O: hysterectomy History of appendectomy Family History Father Heart disease Cancer Family/Other Heart disease Mother Alzheimer disease Bipolar 1 disorder Scoliosis Social History Household Members: None Household Members Other:: close relationship with and son Housing: Apartment Do you presently have visiting nurse or other home services: No Alcohol intake: never Patient Tobacco Use Status: Current someday Tobacco user Tobacco use type: Cigarette Cigarettes Per Day: 5 Years Smoked: 41 Second Hand Smoke Exposure: No service: No Sexual orientation: Straight/Heterosexual Physical Exam Vital Signs: Last Vital Signs Pulse 100 11/23/24 11:41 BP 120/82 11/23/24 11:41 Pulse Ox 96 11/23/24 11:41 Oxygen Delivery Method Room Air 11/23/24 11:41 BMI result Body Mass Index 29.5 Const General: cooperative, healthy appearing, comfortable and no acute distress Nutritional Appearance: average body habitus Orientation/consciousness: patient oriented x3 Eyes Pupils: Equal, round and reactive pupils present Neuro General: patient oriented x3, tone normal, moves all extremities and no focal motor deficits Cranial nerves: Yes Equal, round and reactive pupils present, Yes Bilaterally intact EOM present, Yes Nystagmus not present and Yes Normal facial strength present Cognition (Neuro): normal cognition Gait exam (Neuro): Antalgic gait present Office Procedures Botulinum toxin Injection 88779 - Migraine Procedure code (CPT) selection complete Office Meds onabotulinumtoxinA 200 unit solution for injection Performing Provider: Priscilla Antunez MD Performing Location: [facility] Administered by: Priscilla Antunez MD on 11/23/24 12:07 Dose Route Admin Location Dispensed Lot Number Expiration Date [facility] Repairer General 185 unit subcut 200 units [id number] [employer]ER[employer] /BOTOX Total Dispensed Waste 200 units 7.5 % Comments: see hpi Assessment & Plan Assessment & Plan (1) Migraine with aura, intractable, without status migrainosus: Code(s): G43.119 - Migraine with aura, intractable, without status migrainosus Category: Medical (2) Chronic migraine without aura: Code(s): G43.709 - Chronic migraine without aura, not intractable, without status migrainosus Category: Medical Qualifiers: Status migrainosus presence: without status migrainosus Intractability: intractable Qualified Code(s): G43.719 - Chronic migraine without aura, intractable, without status migrainosus Plan Patient tolerated the procedure well she will call with any side effects Orders: Orders AMB Botulinum toxin Injection Today G43.719 - Chronic migraine without aura, intractable, without status migrainosus Coding Level of Care Code Est Pt Level 1 (56610) Diagnoses Migraine with aura, intractable, without status migrainosus G43.119 Intractable chronic migraine without aura and without status migrainosus G43.719 Status migrainosus presence: without status migrainosus Intractability: intractable CPT Codes Botox Injection - Botox 3: 55464 - Migraine ([id number])
[2024-11-23 11:41] VITALS: BP 120/82; PULSE 100; O2SAT 96; BMI 29.5
--- OUTSIDE RECORDS SUMMARY | 2024-11-23 15:54 | XMS_ITS | Clinical Summary ---
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 CHEMISTRY METHOD 05/11/2024 12:24 PM [facility] Calcium 9.3 8.5 - 10.5 mg/dL LAB CHEMISTRY METHOD 05/11/2024 12:24 PM [facility] AST (SGOT) 11 10 - 42 unit/L LAB CHEMISTRY METHOD 05/11/2024 12:24 PM [facility] ALT (SGPT) 24 10 - 60 unit/L LAB CHEMISTRY METHOD 05/11/2024 12:24 PM [facility] Alkaline Phosphatase 49 42 - 121 unit/L LAB CHEMISTRY METHOD 05/11/2024 12:24 PM [facility] Total Protein 7.4 6.0 - 8.0 g/dL LAB CHEMISTRY METHOD 05/11/2024 12:24 PM [facility] Albumin 3.9 3.2 - 5.0 g/dL LAB CHEMISTRY METHOD 05/11/2024 12:24 PM [facility] Total Bilirubin 0.7 0.0 - 1.4 mg/dL LAB CHEMISTRY METHOD 05/11/2024 12:24 PM [facility] Blood Venous blood specimen / Unknown Venipuncture / Unknown 05/11/2024 9:26 AM EST 05/11/2024 9:26 AM EST us Gene MARCOS LAB BLOOD ORDERABLES Final Resu lt [facility] [address] [place] [address], * Microalbumin creatinine urine ratio (01/15/2024 10:37 AM EST) Creatinine, Urine 125.0 mg/dL LAB CHEMISTRY METHOD 01/15/2024 2:25 PM [facility] Microalb, Ur 6.4 0.0 - 29.0 mg/L LAB CHEMISTRY METHOD 01/15/2024 2:25 PM [facility] Microalb/Creat Ratio 5 <30 mg/g creat LAB CHEMISTRY METHOD 01/15/2024 2:25 PM [facility] Urine Urine specimen obtained by clean catch procedure / Unknown Non-blood Collection / Unknown 01/15/2024 10:37 AM EST 01/15/2024 10:38 AM EST Mary Barahona MD LAB URINE ORDERABLES Final Resul t [facility] ([facility]) [facility] [address] [place] [address], [place] [phone] * Diabetes Eye Exam (08/08/2023) [facility] Diabetes: Annual Retina Eye Exam Abstracted Historical Provider HEALTH MAINTENANCE Final Result * Colonoscopy (06/05/2021) [facility] Colonoscopy No Interpretation , Abstracted Anatomical Region Laterality Modality Other Historical Provider HEALTH MAINTENANCE Final Result * Hepatitis C Screening (08/29/2016) Pathologist [facility] Hepatitis C Screening Abstracted Historical Provider HEALTH MAINTENANCE Final Result from Last 3 Months or Most Recently Relevant to Health Maintenance Insurance [employer] MED[employer] Member Subscriber Plan / Payer (Ef fective 2018-Present) Name:RIGO DEL CID Relation to Subscriber:Self Name:Rigo Del Cid Payer ID:[id number] Group ID:[id number] Type:Not on file Address: [place] [address] [id number] Advance Directives Documents on File Type Date Recorded Patient Principal Electrical Engineer Expl anation Health Care Decision (hx) 01/31/2015 [...] DIRECTIVE Health Care Decision (hx) 01/27/2015 AD [facility] DIRECTIVE Health Care Decision (hx) 01/27/2015 AD [...] (hx) 01/27/2015 AD [facility] DIRECTIVE Care Teams Car Installations Supervisor Relationship Specialty Start Date End Date Mary Barahona MD [address] [place] [id number] PCP - General Internal Medicine 02/12/11
== END 2024-11-23 12:14 | disposition home or self-care (01) ==
LOC: HO.HSMS 11:40
PROVIDERS: PCP Internal Medicine; Visit Provider Psychiatry & Neurology Neurology
DX: G43.719 Chronic migraine without aura, intractable, without status migrainosus (principal)
CPT/HCPCS: 64615

== ENCOUNTER → 2024-11-23 11:39 | Outpatient (BNVA) | payer OTHER, SELFPAY | PROVIDERS: PCP Internal Medicine; Visit Provider Psychiatry & Neurology Neurology | DX: G43.719 Chronic migraine without aura, intractable, without status migrainosus (principal) | CPT/HCPCS: 64615; 99211; J0585 ==

== ENCOUNTER 2025-01-26 15:27 | Emergency (ER) | payer OTHER, SELFPAY ==
[2025-01-26 15:39] VITALS: BP 136/72; PULSE 105; O2SAT 97
[2025-01-26 15:52] VITALS: BP 135/63; PULSE 80; RESP 16; TEMP 36.8; O2SAT 96; BMI 28.2
--- NOTE | 2025-01-26 15:54 | ECG_ITS ---
Test Reason : epigastric pain Blood Pressure : */* mmHG Vent. Rate : 76 BPM Atrial Rate : 76 BPM P-R Int : 152 ms QRS Dur : 80 ms QT Int : 408 ms P-R-T Axes : 40 25 31 degrees QTcB Int : 459 ms Normal sinus rhythm Normal ECG When compared with ECG of 18-Nov-2023 15:45, Nonspecific T wave abnormality now evident in Inferior leads T wave amplitude has decreased in Lateral leads Referred By: Generic ED Physician Electronically Signed By: VOLODYMYR HERRERA
[2025-01-26 16:00] VITALS: BP 132/78; PULSE 80; RESP 20; O2SAT 99
[2025-01-26 16:23] LABS: MANUAL DIFF FLAG NO
[2025-01-26 16:30] LABS: Hematocrit 45.3 % (37.0-47.0); Hemoglobin 15.2 g/dl (12.0-16.0); Imm Gran Abs Auto 0.03 X10*3/uL (0.00-0.03); Imm Gran Pct Auto 0.3 % (0.0-0.4); Lymphocytes Absolute Auto 3.4 X10*3/uL (1.2-4.9); Mean Corpuscular HGB Conc 33.6 g/dl (31.0-35.0); Mean Corpuscular Hemoglobin 28.1 pg (27.0-33.0); Mean Corpuscular Volume 83.7 fL (80.0-98.0); NRBC Abs Auto 0.000 X10*3/uL (0.0-0.012); NRBC Pct Auto 0.0 /100WBC (0.0-0.2); Platelet Count 133 X10*3/uL (160-400); Red Blood Count 5.41 X10*6/uL (4.20-5.50); White Blood Count 8.9 X10*3/uL (4.8-10.8)
[2025-01-26 16:41] LABS: Alanine Aminotransferase 13 U/L (0-31); Albumin Level 4.4 g/dL (3.5-5.0); Alkaline Phosphatase 40 U/L (39-117); Anion Gap 14 (12-20); Aspartate Amino Transferase 23 U/L (5-31); Blood Urea Nitrogen 9 mg/dL (9-16); Calcium 10.4 mg/dL (8.4-10.2); Carbon Dioxide 23 mmol/L (22-29); Chloride 106 mmol/L (96-108); Creatinine Clr Calc Pharmacy 72.7; Estimated Glomerular Filt Rate > 60; Lipase 13 U/L (8-78); Potassium 4.1 mmol/L (3.3-5.1); Sodium 139 mmol/L (135-145); Total Protein 7.3 g/dL (6.5-8.0)
--- NOTE | 2025-01-26 16:58 | ED.ABDPAIN ---
HPI - Abdominal Pain General Chief Complaint: Abdominal Pain Stated Complaint: R SIDED ABD PAIN VOMITING Time Seen by Provider: 01/26/25 16:25 History of Present Illness ED Provider: claire SAUCEDO narrative: Date & Time: 2025-01-26 Patient Name: JUSTO: N: Author / Clinician: Silvestre Rivas MD Chief Complaint Heartburn with associated vomiting. History of Present Illness The patient presents for evaluation of worsening heartburn present for a little over three weeks. Symptoms occur nightly and have progressively worsened. She describes an acidic burning sensation in the chest that is notably worse after the evening meal. She reports frequent belching. Last night she experienced persistent vomiting until approximately 4 AM, consisting of acid and ingested food; she denies hematemesis or dark/coffee-ground emesis. She denies fever. She notes decreased appetite and difficulty eating during the day secondary to fear of symptom provocation. She reports a history of irritable bowel syndrome (IBS) and chronic obstructive pulmonary disease (COPD). She also notes a history of diabetes mellitus, which she describes as not too bad, but expresses concern about difficulty eating during the day due to her symptoms. Prior history of reflux and gastritis; previously controlled on omeprazole and famotidine. Recently changed to pantoprazole, which she feels is ineffective. She has cirrhosis secondary to treated hepatitis C and is accustomed to interval liver ultrasound surveillance; her GI provider recently left the practice and she has been unable to obtain follow-up, with the next available appointment in May. Past surgical history notable for cholecystectomy (2016), appendectomy for appendiceal cancer (2017), and right colectomy (date not specified) without need for colostomy. No alcohol use. Review of Systems - Constitutional: Denies fever. - Gastrointestinal: Reports heartburn, nightly worsening, frequent belching, and vomiting last night. Denies hematemesis, dark/coffee-ground emesis, or melena. - Other systems: Not discussed. Physical Examination Vital Signs: Physical Exam: Emergency Department Course Assessment & Plan Diagnosis: Gastroesophageal reflux disease (GERD) / heartburn exacerbation Plan: Past Medical History - Cirrhosis secondary to treated hepatitis C - Gastroesophageal reflux disease / gastritis - Irritable bowel syndrome (IBS) - COPD - Diabetes mellitus (patient reports ?not severe?) - History of appendiceal cancer (treated surgically) Past Surgical History - Cholecystectomy ? 2017 - Appendectomy ? 2017 (for appendiceal cancer) - Right colectomy ? date not specified (post-appendiceal cancer) Disposition Related Data Home Medications ?Medication ?Instructions ?Recorded ?Confirmed budesonide-formoterol HFA 160 2 puff inhalation BID 06/11/21 11/23/24 mcg-4.5 mcg/actuation aerosol inhaler (Symbicort) clonazepam 0.5 mg tablet 0.5 mg PO TID PRN Anxiety 06/11/21 11/23/24 insulin aspart U-100 100 unit/mL 0 sliding scale dose subcut TIDWM 06/11/21 11/23/24 (3 mL) subcutaneous pen (Novolog FlexPen U-100 Insulin aspart) blood sugar diagnostic (FreeStyle #10 ea 02/07/22 11/23/24 Precision Garrett Strips) flash glucose scanning reader #1 ea 02/07/22 11/23/24 (FreeStyle Dharmesh 2 [place]) flash glucose sensor (FreeStyle #1 ea 02/07/22 11/23/24 Dharmesh 2 Sensor kit) insulin detemir U-100 100 unit/mL 8 - 10 unit subcut BEDTIME 02/07/22 11/23/24 (3 mL) subcutaneous pen (Levemir FlexTouch U-100 Insulin) pen needle, diabetic 29 gauge x #100 ea 02/07/22 11/23/24 1/2 (BD Ultra-Fine Original Pen Needle) simvastatin 40 mg tablet 40 mg PO BEDTIME 02/07/22 11/23/24 miconazole nitrate 2 % vaginal 1 appful vaginal BEDTIME 09/04/22 11/23/24 cream umeclidinium 62.5 mcg/actuation 1 inh inhalation DAILY 11/17/23 11/23/24 blister powder for inhalation (Incruse Ellipta) pantoprazole 40 mg tablet,delayed 40 mg PO BID 11/23/24 11/23/24 release solifenacin 5 mg tablet 5 mg PO DAILY 11/23/24 11/23/24 tizanidine 4 mg tablet 4 mg PO TID 11/23/24 11/23/24 Previous Rx's ?Medication ?Instructions ?Recorded sertraline 150 mg capsule 150 mg PO DAILY #30 caps 11/21/23 trazodone 100 mg tablet 200 mg (2 x 100 mg) PO BEDTIME #60 11/21/23 tabs ubrogepant 100 mg tablet (Ubrelvy) See Rx Instructions .Route 11/21/23 .COMPLEX #8 tabs gabapentin 300 mg capsule 300 mg PO TID 30 days #90 caps 12/07/24 Allergies Allergy/AdvReac Type Severity Reaction Status Date / Time codeine Allergy Stomach Verified 01/26/25 15:53 Upset ropinirole (From Requip) Allergy Muscle Pain Verified 01/26/25 15:53 acetaminophen (From Vicodin) AdvReac Mild Stomach Verified 01/26/25 15:53 Upset hydrocodone (From Vicodin) AdvReac Mild Stomach Verified 01/26/25 15:53 Upset PMFSH Past Medical History Medical History Migraine Chronic migraine without aura Surgical History Hx of discectomy S/P knee surgery History of cataract surgery H/O cervical spine surgery H/O: hysterectomy History of appendectomy Family History Family History Father Heart disease Cancer Family/Other Heart disease Mother Alzheimer disease Bipolar 1 disorder Scoliosis Social History Social History Household Members: None Household Members Other:: close relationship with and son Housing: Apartment Do you presently have visiting nurse or other home services: No Alcohol intake: never Patient Tobacco Use Status: Current someday Tobacco user Tobacco use type: Cigarette Cigarettes Per Day: 5 Years Smoked: 41 Second Hand Smoke Exposure: No Advance Directives: No Advance Directives Information Provided: No service: No Sexual orientation: Straight/Heterosexual Physical Exam ED Exam Exam: EXAM: Gen: Alert, awake, well appearing, well hydrated. Head: Atraumatic Eyes: Anicteric, Normal conjunctiva. ENT: Moist mucosa, no pallor. ? Neck: Supple. Skin: ?No observable rash or bruising on exposed or examined skin Respiratory: Breathing comfortably, No distress.Clear to auscultation bilaterally, symmetric chest expansion, No wheeze, rales, ronchi. Cardiovascular: Regular rate and rhythm. No murmurs or rub. Well perfused periphery, warm extremities. No edema. ? Abdominal: No focal tenderness. Soft, no objective distension. No palpable masses or obvious organomegaly. ?No guarding, no rebound tenderness or other peritoneal findings. : No flank tenderness. Neuro: Alert. Gross movement of all extremities intact. ? Psych: Calm. Cooperative. MSK: No grossly visible deformity. Vital signs: See flowsheet Vital Signs: Vital Signs - 24 hr 01/26/25 15:52 01/26/25 16:00 01/26/25 18:00 Temperature 98.2 F Pulse Rate 80 80 78 Respiratory Rate 16 20 19 Blood Pressure 135/63 132/78 130/70 Pulse Oximetry 96 99 96 Oxygen Delivery Method Room Air Room Air Room Air 01/26/25 19:14 Temperature 98.0 F Pulse Rate 75 Respiratory Rate 18 Blood Pressure 129/46 L Pulse Oximetry 97 Oxygen Delivery Method Room Air BMI result Body Mass Index 28.2 Medical Decision Making Medical Decision Making MDM Narrative: Medical Decision Making: [age] with appendiceal cancer status post colectomy chronic gastritis, cirrhosis with hep C complete treatment in the past. She has had increasing GERD symptoms as above. No significant abdominal tenderness she looks quite well and hydrated but vomiting nauseated we will check lab work hydrate her. She has gastro follow up the coming months. Preliminary Favored Differential Diagnosis: [GERD, PUD, gastritis, pancreatitis ] among additional considered etiologies Testing Interpreted Independently: ?See below for details Radiology or Lab testing Results Reviewed: ?See below for details Consults: ?See below for details Independent Historians/External Chart Reviews: ?See below for details Social Determinants of Health Impacting MDM/Planning: ?See below for details Lab Data MDM Lab Attestation statement: I reviewed the patient's lab results. 01/26/25 16:18 01/26/25 16:18 Labs: Lab Results 01/26/25 Range/Units 16:18 WBC 8.9 (4.8-10.8) X10*3/uL RBC 5.41 (4.20-5.50) X10*6/uL Hgb 15.2 (12.0-16.0) g/dl Hct 45.3 (37.0-47.0) % MCV 83.7 (80.0-98.0) fL MCH 28.1 (27.0-33.0) pg MCHC 33.6 (31.0-35.0) g/dl RDW 13.3 (11.0-16.0) % Plt Count 133 L (160-400) X10*3/uL MPV 11.0 (9.4-12.3) fL Immature Gran % (Auto) 0.3 (0.0-0.4) % Neut % (Auto) 47.2 (45-73) % Lymph % (Auto) 37.6 (20-40) % [place] % (Auto) 10.0 (2-11) % Eos % (Auto) 4.3 H (0-4) % Baso % (Auto) 0.6 (0-2) % Lymph # (Auto) 3.4 (1.2-4.9) X10*3/uL [place] # (Auto) 0.9 (0.1-1.2) X10*3/uL Eos # (Auto) 0.4 (0.0-0.4) X10*3/uL Baso # (Auto) 0.1 (0.0-0.2) X10*3/uL Abs Immat Gran (auto) 0.03 (0.00-0.03) X10*3/uL Absolute Neuts (auto) 4.2 (2.0-8.3) x10*3/uL Absolute Nucleated RBC 0.000 (0.0-0.012) X10*3/uL Nucleated RBC % (auto) 0.0 (0.0-0.2) /100WBC Sodium 139 (135-145) mmol/L Potassium 4.1 (3.3-5.1) mmol/L Chloride 106 (96-108) mmol/L Carbon Dioxide 23 (22-29) mmol/L Anion Gap 14 (12-20) BUN 9 (9-16) mg/dL Creatinine 0.78 (0.5-1.4) mg/dL Estim Creat Clear Calc 72.7 Estimated GFR > 60 Random Glucose 138 H (60-115) mg/dL Calcium 10.4 H D (8.4-10.2) mg/dL Total Bilirubin 0.5 (0.0-1.0) mg/dL AST 23 (5-31) U/L ALT 13 (0-31) U/L Alkaline Phosphatase 40 (39-117) U/L Total Protein 7.3 (6.5-8.0) g/dL Albumin 4.4 (3.5-5.0) g/dL Lipase 13 (8-78) U/L Medications Administered Discontinued Medications Generic Name Dose Route Start Last Admin Trade Name Freq PRN Reason Stop Dose Admin Sodium Chloride 1,000 mls @ 999 mls/hr 01/26/25 17:00 01/26/25 19:02 Ns IV 01/26/25 18:00 Infused .Q1H1M UMU Infusion Ondansetron HCl 4 mg 01/26/25 17:00 01/26/25 17:54 Ondansetron Hcl 4 Mg/2 Ml Vial IVPUSH 01/26/25 17:01 4 mg ONCE ONE Administration Pantoprazole Sodium 80 mg 01/26/25 17:00 01/26/25 17:54 Pantoprazole Sodium 40 Mg/10 Ml Vial IVPUSH 01/26/25 17:01 80 mg ONCE ONE Administration Sucralfate 1 gm 01/26/25 17:00 01/26/25 17:54 Sucralfate Oral Suspension 1 Gm/10 Ml Oral.Susp PO 01/26/25 17:01 1 gm ONCE ONE Administration Discharge Plan Discharge Clinical Impression: Abdominal pain Patient Disposition: Home, Self-Care Instructions: Abdominal Pain (ED) Additional Instructions: You were evaluated for upper abdominal pain you will 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 You had reassuring lab work here in the emergency department we hydrated you Prescriptions: No Action Ubrelvy 100 mg tablet See Rx Instructions .ROUTE .COMPLEX Qty: 8 6RF Rx Instructions: 1/2 -1 tab PO,; May repeat in 2 hours. Max 200 mg/day gabapentin 300 mg capsule 300 mg PO TID 30 Days Qty: 90 3RF Incruse Ellipta 62.5 mcg/actuation blister with device 1 inh inhalation DAILY sertraline 150 mg capsule 150 mg PO DAILY Qty: 30 0RF trazodone 100 mg Tablet 200 mg PO BEDTIME Qty: 60 0RF insulin aspart U-100 [Novolog FlexPen U-100 Insulin] 100 unit/mL (3 mL) insulin pen 0 sliding scale dose subcut TIDWM clonazepam 0.5 mg tablet 0.5 mg PO TID PRN (Reason: Anxiety) budesonide-formoterol [Symbicort] 160-4.5 mcg/actuation HFA aerosol inhaler 2 puff inhalation BID (DME) pen needle, diabetic [BD Ultra-Fine Orig Pen Needle] 29 gauge x 1/2 needle See Rx Instructions .ROUTE .MEDSUPPLY Qty: 100 Rx Instructions: As directed (DME) FreeStyle Dharmesh 2 Sensor Kit See Rx Instructions .ROUTE .MEDSUPPLY Qty: 1 Rx Instructions: As directed Levemir FlexTouch U100 Insulin 100 unit/mL (3 mL) insulin pen 8 - 10 unit subcut BEDTIME (DME) FreeStyle Precision Garrett Strips Strip See Rx Instructions .ROUTE .MEDSUPPLY Qty: 10 Rx Instructions: As directed simvastatin 40 mg tablet 40 mg PO BEDTIME (DME) FreeStyle Dharmesh 2 [place] Misc See Rx Instructions .ROUTE .MEDSUPPLY Qty: 1 Rx Instructions: As directed miconazole nitrate 2 % cream 1 appful vaginal BEDTIME tizanidine 4 mg tablet 4 mg PO TID pantoprazole 40 mg tablet,delayed release (DR/EC) 40 mg PO BID solifenacin 5 mg tablet 5 mg PO DAILY Discharge Date/Time: 01/26/25 19:48 Print Language: [place]
[2025-01-26] MEDS: Sucralfate Oral Suspension 1 GM/10 ML ORAL.SUSP PO (17:54)
[2025-01-26 18:00] VITALS: BP 130/70; PULSE 78; RESP 19; O2SAT 96
[2025-01-26 19:14] VITALS: BP 129/46; PULSE 75; RESP 18; TEMP 36.7; O2SAT 97
--- OUTSIDE RECORDS SUMMARY | 2025-01-27 04:43 | XMS_ITS | Data Portability ---
Author Organization [place] [facility] Address [address] [place] [phone] Care Team Providers Care Kick Press Setter Name Role Phone [facility] Referring Provider Assessment No assessment recorded. Plan of Treatment Reminders Order Date Submit Date Provider Last Modified By Organization Details Last Modified Time Details Appointments None recorded. Lab rapid flu (A+B) [address], [phone] 21:48:41 rapid SARS CoV 2 Ag, QL IA, respiratory specimen [address], [phone] 21:48:40 rapid strep group A, throat [address], [phone] 21:48:40 Referral None recorded. Procedures None recorded. Surgeries None recorded. Imaging None recorded. Medication Orders None recorded. Patient TargetsNo targets recorded. Patient InstructionsNo instructions recorded. Reason for Referral None Reported. Results Created Date Observation Date Name Description Value Unit Range Abnormal Flag Note LastModifiedBy Organization Detail LastModifiedTime 02/04/2002/03/2022 rapid strep group A, throa t Strep negati ve Not Available [facility] ed [address] [place] [address], [phone] 02/03/2022 21:48:20 02/04/20 22 02/03/2022 rapid SARS CoV 2 Ag, QL IA, respi rator y speci men rapid SARS CoV 2 Ag, QL IA, respiratory specimen negati ve Not Available [facility] ed [address] [place] [address], [phone] 02/03/2022 21:48:16 02/04/20 22 02/03/2022 rapid flu (A+B) Flu negati ve Not Available [facility] ed [address] [place] [address], [phone] 02/03/2022 21:48:14 Result Notes None recorded. Medical Equipment None Reported. Medications Name Sig Start Date Stop Date Status Note LastModified by Organization Details LastModified Time methocarbamol 500 mg tablet active Not Available Not Availabl e Not Available nicotine 14 mg/24 hr daily transdermal patch active Not Available Not Available Not Available nicotine (polacrilex) 2 mg gum active Not Available Not Available Not Available ofloxacin 0.3 % eye drops active Not Available Not Available No t Available FreeStyle Lancets 28 gauge active Not Available Not Available Not Available prednisone 20 mg tablet active Not Available Not Available No t Available clonazepam 0.5 mg tablet active Not Available Not Available No t Available dexamethasone 6 mg tablet active Not Available Not Available No t Available sertraline 100 mg tablet active Not Available Not Available No t Available omeprazole 40 mg capsule,delayed release active Not Available Not Available Not Available doxycycline monohydrate 100 mg tablet active Not Available Not Available No t Available Nicotrol 10 mg inhalation cartridge active Not Available Not Available No t Available tramadol 50 mg tablet active Not Available Not Available Not Available simvastatin 40 mg tablet active Not Available Not Available No t Available ketorolac 0.5 % eye drops active Not Available Not Available No t Available famotidine 20 mg tablet active Not Available Not Available No t Available trazodone 100 mg tablet active Not Available Not Available No t Available meclizine 25 mg tablet active Not Available Not Available Not Available glipizide ER 2.5 mg tablet, extended release 24 hr active Not Available Not Availabl e Not Available gabapentin 300 mg capsule active Not Available Not Available N ot Available albuterol sulfate HFA 90 mcg/actuation aerosol inhaler active Not Available Not Availa ble Not Available Novolog FlexPen U-100 Insulin aspart 100 unit/mL (3 mL) subcutaneous active Not Available Not Available Not Available bupropion HCl XL 300 mg 24 hr tablet, extended release active Not Available Not Available Not Available bupropion HCl XL 150 mg 24 hr tablet, extended release active Not Available Not Available Not Available mirtazapine 7.5 mg tablet active Not Available Not Available No t Available BD Ultra-Fine Original Pen Needle 29 gauge x 1/2 active Not Available Not Available Not Available Symbicort 160 mcg-4.5 mcg/actuation HFA aerosol inhaler active Not Available Not Available Not Available peg 3350-electrolyt es 236 gram-22.74 gram-6.74 gram-5.86 gram solution active Not Available Not Available Not Available Lantus Solostar U-100 Insulin 100 unit/mL (3 mL) subcutaneous pen active Not Available Not Available Not Available Levemir FlexTouch U-100 Insulin 100 unit/mL (3 mL) subcutaneous pen active Not Available Not Available Not Available Incruse Ellipta 62.5 mcg/actuation powder for inhalation active Not Available Not Available N ot Available FreeStyle Precision Garrett Strips active Not Available Not Available Not Available TRUEplus Glucose 15 gram/32 mL oral gel packet active Not Available Not Available N ot Available Baqsimi 3 mg/actuation nasal spray active Not Available Not Available Not Available Ubrelvy 100 mg tablet active Not Available Not Available Not Available FreeStyle Dharmesh 2 Sensor kit active Not Available Not Available Not Available FreeStyle Dharmesh 2 Cardwell active Not Available Not Available Not Available Vitals Date Recorded Oxygen saturation Oxygen saturation in Arterial blood by Pulse oximetry Respiratory rate Body weight Heart rate Body temperature Body height Heart rate Body weight Body temperature Respiratory rate Oxygen saturation Provider Name and Address Organization Details Last Updated DateTime 96 % 96 % 18 /min 46425.6 4 g 89 /min 97.9 [degF] 157.48 cm 89 /min 12151.6 4 g 97.9 [degF] 18 /min 96 % Not Available [employer] 13:53:45 Date Recorded Oxygen saturation in Arterial blood by Pulse oximetry Body height Systolic And Diastolic Systolic And Diastolic Provider Name and Address Organization Details Last Updated DateTime 02/03/2022 96 % 157.48 cm 108/73 mm[Hg] 108/73 mm[Hg] Not Available [employer] 13:53:45 Social History None recorded. Functional Status None recorded. Mental Status None recorded. Family History Nothing Reported. Medical History No medical history recorded. Gynecological HistoryNo gynecological history recorded. Obstetrics History GPAL:G 0 P 0 0 0 0 Past Encounters Encounter ID Performer Location Encounter Start Date Encounter Closed Date Diagnosis/Indication Diagnosis SNOMED-CT Code Diagnosis ICD10 Code Diagnosis IMO Codes Diagnosis Note [id number] Bienvenido Chanel MD [address] [phone] 02/03/2022 12:54:46 02/05/2022 11:08:27 Dizziness [id number] R42 EKG with no ST-T wave changes. Not in afib. Upper resp iratory infection 93387584 J06.9 Flu/COVID/ Strep negative. Continue conservati ve care. Health Concerns Section Related Observation LastModified by Organization Detai ls LastModified Time None Recorded Concern Status LastModified by Organization Details LastModified Time None Recorded Advance Directives Directive None Recorded Payers Insurance Date Sequence Insurance Name Policy Number Policy Perry Covered Member ID Perry Member ID Guarantor Name 09/18/2023 1 [facility] [place] - DOS PRIOR TO 2022 - DUAL ELIGIBLE (MEDICARE REPLACEMENT/ADV ANTAGE - HMO) Rigo Del Cid [id number] Rigo Del Cid 09/18/2023 1 [facility] [place] - DOS ON OR AFTER 2022 - DUAL ELIGIBLE - [facility] OPTIONS AND ONE CARE (MEDICARE REPLACEMENT/ADV ANTAGE - HMO) Rigo Del Cid [id number] Rigo Del Cid Notes Date Note Type Note Provider Name and Address Organization Details Recorded Time 02/03/2022 text/html ROS as noted in the HPI HPI: mbr with complaints of Cough/congested/di zzy/lightheaded, states Pulse O2 96, HR 122 feeling palpitation, symptoms began four days ago. mbr with Hx of COPD no home O2. requesting [facility] visit. Protocol Used: Cough - Acute Productive Protocol-Based Disposition: Consider [facility] Community clinician, MD/ORACLE ERP DEVELOPER triage, PCP, or Urgent Care Visit within 4 Hours Positive Triage Questions: * [1] MILD difficulty breathing (e.g., minimal/no SOB at rest, SOB with walking, pulse < 100) AND [2] still present when not coughing * Wheezing is present * [1] Continuous (nonstop) coughing interferes with work or school AND [2] no improvement using cough treatment per Care Advice * [1] Known COPD or other severe lung disease (i.e., bronchiectasis, cystic fibrosis, lung surgery) AND [2] worsening symptoms (i.e., increased sputum purulence or amount, increased breathing difficulty .................. .................. .................. .................. .................. .................. .................. ............... [facility] Nursing Assessment: Comments: review request no further information needed to process visit .................. .................. .................. .................. .................. .................. .................. ............... Major Gifts Manager Note: Sent to a call for a pt complaining of cough, congestion, dizziness, and cp. SC6 arrives on scene, pt is alert and oriented. Airway is patent. Pt complains of headache, worsening dizziness (from baseline), sinus pressure, sore throat, bilateral cp (yesterday) with cough, chest pressure (today) with cough, intermittent sob with cough, palpitations, RLQ and LLQ abd pain (due to constipation/IBS per pt), and general malaise. Pt denies n/v/d, fever, or loc. Pt has been eating and drinking normally. Pt has COPD and A-fib. Pt uses albuterol inhaler as needed, and is supposed to have a holter monitor placed this week to monitor heart rate. Pt's normal heart rate is between 95-103. Pt reports heart rate briefly elevated to 122. Rapid covid test: neg, rapid flu test: neg, rapid strep test: neg; (sitting) BP:108/73, P:89, RR:18, SpO2:96% RA, T:97.9; (standing) BP:98/72, P:101; Neuro exam: neg, Head: oropharynx-erythem a noted, no edema or exudate; Lung sounds: clear bilaterally; Abdomen: soft, non-tender, no distention; Skin: pink, warm, dry; 12 lead ECG: uploaded to [employer]. [facility] has no orders. Pt is reassured ECG appears normal and vitals are stable. Pt advised to increase oral hydration, continue monitoring SpO2 and HR. Pt advised to follow up with alive.cned if cough persists, or follow up with PCP for possible chest x-ray. Red flags discussed. Pt has no further questions. .................. .................. .................. .................. .................. .................. .................. ............... Disposition: Fulfilled Bienvenido Chanel MD [address] [place] [address],[address], [place], [phone], [facility] [employer] 02/03/2022 21:49:06 OBGyn Episode No OBEpisode recorded.
--- OUTSIDE RECORDS SUMMARY | 2025-01-27 04:43 | XMS_ITS | Clinical Summary ---
Author Organization [facility] Address [address] [place] [address] Care Team Providers Care Tile Fitter Name Role Phone Mary Barahona MD Primary Care Provider [phone] Social History Tobacco Use Types Packs/Day Years Used Date Smoking Tobacco: Never Assessed Sex and Gender Information Value Date Recorded Sex Assigned at Not on file Gender Identity Not on file Sexual Orientation Not on file Job Start Date Occupation Industry Not on file Not on file Not on file Plan of Treatment Health Maintenance Due Date Last Done Comments Hepatitis C Screening 1960 COVID-19 Vaccine (#1) 04/02/1959 Depression Screening 1970 Preventative Health Evaluation 1976 Colon Cancer Screening (Colonoscopy) 10/01/2003 Breast Cancer Screening (Mammogram) 2008 Shingrix-Zoster Vaccine (1 of 2) 2008 DTap / Tdap / Td (2 - Td or Tdap) 03/26/2020 03/26/2010 Fall Risk Assessment 10/01/2023 Osteoporosis Screening (DEXA Scan) 10/01/2023 Pneumococcal Vaccine (2 of 2 - PCV) 10/01/2023 09/22/2017 Influenza Vaccine (#1) 2024 7, 12/04/2015, 12/19/2014, Additional history exists RSV Adult > 60+ Yrs or (1 - 1-dose 75+ series) 2033 Hepatitis B Vaccines Completed 05/26/2017, 12/23/2016, 11/20/2016 RSV Ped < 20 months Aged Out No longe r eligible based on patient's age to complete this topic Care Teams Tile Fitter Relationship Specialty Start Date End Date Mary Barahona MD PCP - General Internal Medicine 12/08/18
== END 2025-01-26 19:48 | disposition home or self-care (01) ==
PROVIDERS: Emergency Provider Emergency Medicine; PCP Internal Medicine
DX: R10.13 Epigastric pain (principal); R10.9 Unspecified abdominal pain; F17.200 Nicotine dependence, unspecified, uncomplicated; Z71.6 Tobacco abuse counseling
CPT/HCPCS: 36415; 80053; 83690; 85025; 93005; 96361; 96374; 96375; 99284; J2405; J2470

== ENCOUNTER → 2025-01-26 15:54 | Outpatient (BNV) | payer OTHER, SELFPAY | PROVIDERS: Emergency Provider Emergency Medicine; PCP Internal Medicine; Visit Provider Internal Medicine | DX: R10.13 Epigastric pain (principal) | CPT/HCPCS: 93010 ==